=== PATIENT | female | born 1960 | race Caucasian/White ===

== ENCOUNTER 2016-07-25 12:00 | Emergency (ER) | payer MEDICARE ==
[~2016-07-25] VITALS: Ht 162.6 cm; Wt 75.0 kg
[~2016-07-25 12:00] MED LIST: BACL10TA PO; CYCL10TA9 PO; DOCU-143 PO; HYDR-3812 PO; METF500T4 PO; METH750T3 PO; OXYC-464 PO
[2016-07-25 12:14] LABS: BASOPHILS % (AUTO) 0 % (0-10); EOSINOPHILS # (AUTO) 0.1 10^3/uL (0.0-0.3); EOSINOPHILS % (AUTO) 1 % (0-10); LYMPHOCYTES # (AUTO) 4.4 X 10^3 (1.0-4.0); LYMPHOCYTES % (AUTO) 43 % (12-44); MEAN CORPUSCULAR HEMOGLOBIN 32 PG (25-34); MEAN CORPUSCULAR HGB CONC 35 G/DL (32-36); MEAN CORPUSCULAR VOLUME 91 FL (80-99); MEAN PLATELET VOLUME 10.8 FL (7.4-10.4); MONOCYTES # (AUTO) 0.5 X 10^3 (0.0-1.0); MONOCYTES % (AUTO) 5 % (0-12); NEUTROPHILS # (AUTO) 5.2 X 10^3 (1.8-7.8); NEUTROPHILS % (AUTO) 51 % (42-75); PLATELET COUNT 220 10^3/uL (130-400); RED BLOOD COUNT 4.58 10^6/uL (4.35-5.85); RED CELL DISTRIBUTION WIDTH 12.8 % (10.0-14.5); WHITE BLOOD COUNT 10.1 10^3/uL (4.3-11.0)
--- NOTE | 2016-07-25 12:20 | Diagnostic Imaging Report ---
INDICATION: Left-sided chest pain radiating down the left arm. FINDINGS: Upright portable chest shows normal heart size and vascularity. The lungs are clear. There is no effusion or pneumothorax. IMPRESSION: Normal chest. Dictated by: Dictated on workstation # [id number]
[2016-07-25] MEDS ORDERED: morphine INJ 10 MG/ML 1ML (SYR OR VIAL) IVP STA (12:24)
[2016-07-25 12:25] LABS: PROTHROMBIN TIME PATIENT 13.1 SEC (12.2-14.7)
[2016-07-25 12:37] LABS: ALANINE AMINOTRANSFERASE 32 U/L (0-55); ALBUMIN 3.7 G/DL (3.2-4.5); ANION GAP 8 MMOL/L (5-14); ASPARTATE AMINO TRANSFERASE 18 U/L (5-34); BILIRUBIN,TOTAL 0.4 MG/DL (0.1-1.0); BLOOD UREA NITROGEN 10 MG/DL (7-18); BUN/CREATININE RATIO 13; CALCIUM 9.3 MG/DL (8.5-10.1); CARBON DIOXIDE 25 MMOL/L (21-32); CHLORIDE 107 MMOL/L (98-107); CREATINE KINASE 38 U/L (29-168); GFR ESTIMATED > 60; GLUCOSE 279 MG/DL (70-105); MAGNESIUM 1.6 MG/DL (1.8-2.4); SODIUM 140 MMOL/L (135-145); TOTAL PROTEIN 6.6 G/DL (6.4-8.2)
[2016-07-25 12:45] LABS: MYOGLOBIN SERUM 23.4 NG/ML (10.0-92.0)
--- NOTE | 2016-07-25 13:08 | ED Chest Pain ---
General Chief Complaint: Chest Pain Stated Complaint: CHEST PAIN Nursing Triage Note: pt reports cp starting yesterday. pt describes cp as pressure. pt reports cp that is worse with movement/walking. pt reports increased soa with exertion. Nursing Sepsis Screen: No Definite Risk Source: patient Exam Limitations: no limitations History of Present Illness Time seen by provider: 12:40 Initial Comments Here with report of left anterior chest wall pain that she describes as a pressure or an ache and is worse with movement or deep breathing. This started yesterday and has persisted since then. She took ibuprofen last night and stated it did not help much. She does have chronic pain syndrome related to spinal cord injury but has been off her pain medicines for 3 months since moving here to [place] from [place]. Denies nausea, vomiting, weakness or breathing problems. Does admit to recent gardening. Timing/Duration: 1-2 days Severity/Quality: moderate, aching, pressure Location: central (left anterior) Radiation: no radiation ASA po [employer] SUPER[employer]OR: No NTG SL [employer] SUPERVISOR: No Associated Symptoms: No abdominal pain, back pain (chronic), No nausea/vomiting , shortness of breath, No weakness Allergies and Home Medications Allergies Coded Allergies: No Known Drug Allergies (Unverified , 11/16/15) Home Medications No Active Prescriptions or Reported Meds Review of Systems Constitutional: see HPI, No chills, No fever EENTM: No Symptoms Reported Respiratory: See HPI Cardiovascular: See HPI, Chest Pain, Denies Edema Gastrointestinal: See HPI, Denies Nausea, Denies Vomiting Genitourinary: No Symptoms Reported Skin: no symptoms reported Psychiatric/Neurological: No Symptoms Reported All Other Systems Reviewed Negative Unless Noted: Yes Past Jeqhxnf-Idxirz-Gszele Hx Patient Social History Alcohol Use: Occasionally Uses Recreational Drug Use: No Smoking Status: Current Everyday Smoker Type Used: Cigarettes Recent Foreign Travel: No Contact w/Someone Who Travel: No Recent Infectious Disease Expo: No Recent Hopitalizations: No Surgeries HX Surgeries: Yes (NECK sx, TUMOR REMOVED FROM FOREHEAD, right leg fx required 5 sx, left knee) Surgeries: Gallbladder, Orthopedic, Tubal Ligation Respiratory Hx Respiratory Disorders: Yes (allergy induced asthma) Respiratory Disorders: Asthma Cardiovascular Hx Cardiac Disorders: No Neurological Hx Neurological Disorders: Yes (spinal cord injury 2011, balance issues) Neurological Disorders: Spinal Cord Injury Reproductive System Hx Reproductive Disorders: No Genitourinary Hx Genitourinary Disorders: Yes (incont, ) Gastrointestinal Hx Gastrointestinal Disorders: No Gastrointestinal Disorders: Gall Bladder Disease Musculoskeletal Hx Musculoskeletal Disorders: Yes (left shoulder weak, spinal stenosis) Musculoskeletal Disorders: Fractures Endocrine Hx Endocrine Disorders: Yes Endocrine Disorders: Diabetes, Non-Insulin dep HEENT HX ENT Disorders: No (glasses) Cancer Hx Cancer: No Psychosocial Hx Psychiatric Problems: Yes Behavioral Health Disorders: Depression Integumentary HX Skin/Integumentary Disorder: No Blood Transfusions Hx Blood Disorders: No Reviewed Nursing Assessment Reviewed/Agree w Nursing PMH: Yes Family Medical History Significant Family History: Cancer Physical Exam Vital Signs Vital Sign - Last 12Hours 07/25/16 07/25/16 12:10 12:23 Temp 97.6 Pulse 79 Resp 18 B/P (MAP) 137/110 Pulse Ox 96 O2 Delivery Room Air Capillary Refill : Less Than 3 Seconds General Appearance: No Apparent Distress, WD/WN HEENT: PERRL/EOMI, Pharynx Normal Neck: Non Tender, Supple Respiratory: Lungs Clear, Normal Breath Sounds, Other (reproducible anterior chest wall pain.) Cardiovascular: Regular Rate, Rhythm, No Murmur Gastrointestinal: Non Tender, Soft Extremity: Non Tender, No Calf Tenderness Neurologic/Psychiatric: Alert, Oriented x3 Progress/Results/Core Measures Results/Orders Lab Results Laboratory Tests Test 07/25/16 12:03 Range/Units White Blood Count 10.1 4.3-11.0 10^3/uL Red Blood Count 4.58 4.35-5.85 10^6/uL Hemoglobin 14.5 11.5-16.0 G/DL Hematocrit 42 35-52 % Mean Corpuscular Volume 91 80-99 FL Mean Corpuscular Hemoglobin 32 25-34 PG Mean Corpuscular Hemoglobin Concent 35 32-36 G/DL Red Cell Distribution Width 12.8 10.0-14.5 % Platelet Count 220 130-400 10^3/uL Mean Platelet Volume 10.8 H 7.4-10.4 FL Neutrophils (%) (Auto) 51 42-75 % Lymphocytes (%) (Auto) 43 12-44 % Monocytes (%) (Auto) 5 0-12 % Eosinophils (%) (Auto) 1 0-10 % Basophils (%) (Auto) 0 0-10 % Neutrophils # (Auto) 5.2 1.8-7.8 X 10^3 Lymphocytes # (Auto) 4.4 H 1.0-4.0 X 10^3 Monocytes # (Auto) 0.5 0.0-1.0 X 10^3 Eosinophils # (Auto) 0.1 0.0-0.3 10^3/uL Basophils # (Auto) 0.0 0.0-0.1 10^3/uL Prothrombin Time 13.1 12.2-14.7 SEC INR Comment 1.0 0.8-1.4 Activated Partial Thromboplast Time 28 24-35 SEC D-Dimer 0.27 0.00-0.49 UG/ML Sodium Level 140 135-145 MMOL/L Potassium Level 4.0 3.6-5.0 MMOL/L Chloride Level 107 98-107 MMOL/L Carbon Dioxide Level 25 21-32 MMOL/L Anion Gap 8 5-14 MMOL/L Blood Urea Nitrogen 10 7-18 MG/DL Creatinine 0.80 0.60-1.30 MG/DL Estimat Glomerular Filtration Rate > 60 BUN/Creatinine Ratio 13 Glucose Level 279 H 70-105 MG/DL Calcium Level 9.3 8.5-10.1 MG/DL Magnesium Level 1.6 L 1.8-2.4 MG/DL Total Bilirubin 0.4 0.1-1.0 MG/DL Aspartate Amino Transf (AST/SGOT) 18 5-34 U/L Alanine Aminotransferase (ALT/SGPT) 32 0-55 U/L Alkaline Phosphatase 99 40-136 U/L Total Creatine Kinase 38 29-168 U/L Creatine Kinase MB 1.1 <6.6 NG/ML Myoglobin 23.4 10.0-92.0 NG/ML Troponin I < 0.30 <0.30 NG/ML Total Protein 6.6 6.4-8.2 G/DL Albumin 3.7 3.2-4.5 G/DL My Orders Orders - NASH EVANGELISTA MD Ketorolac Injection (Toradol Injection) (07/25/16 13:13) Orphenadrine Injection (Norflex Injectio (07/25/16 13:13) Orphenadrine Injection (Norflex Injectio (07/25/16 13:45) Medications Given in ED Current Medications Medications Dose Ordered Sig/Jose Route Start Time Stop Time Status Last Admin Dose Admin Ondansetron HCl 4 mg ONCE ONCE IVP 07/25/16 13:15 07/25/16 13:16 DC 07/25/16 13:30 4 MG Orphenadrine Citrate 60 mg ONCE ONCE IV 07/25/16 13:45 07/25/16 13:46 DC 07/25/16 13:39 60 MG Vital Signs/I&O Vital Sign - Last 12Hours 07/25/16 07/25/16 12:10 12:23 Temp 97.6 Pulse 79 Resp 18 B/P (MAP) 137/110 Pulse Ox 96 O2 Delivery Room Air Blood Pressure Mean: 119 Progress Note : Progress Note Seen and evaluated. IV, labs, EKG and chest x-ray. ASA 324 mg by mouth. Monitor patient. Morphine 6 mg IV. Toradol 30 mg IV and Norflex 60 mg IV ordered. Monitor patient. 1410: Patient is improved. We did discuss the need for follow-up with cardiology and she will do that. She is out of her normal pain medicine and has been for several months. I will write a small prescription for Flexeril and for tramadol. She will find a local doctor as well as with the cardiology appointment. Discharged home with return precautions. Patient verbalize understanding instructions and agreement with plan. ECG Initial ECG Impression Date: Jul 25, 2016 Initial ECG Impression Time: 11:56 Initial ECG Rate: 73 Initial ECG Rhythm: Normal Sinus Comment Sinus rhythm with left atrial abnormality. Left axis deviation. No evidence of ST elevation AL. No previous available for comparison. Interpreted by me. Diagnostic Imaging Diagonstic Imaging: Xray Plain Films/CT/US/NM/MRI: chest Comments NAME: ALISHA FINLEY [facility] REC#: [id number] PT STATUS: REG ER : 1960 PHYSICIAN: RAFA BLACKMON ADMIT DATE: 07/25/16/ER Signed Date of Exam: 07/25/16 CHEST 1 VIEW, AP/PA ONLY INDICATION: Left-sided chest pain radiating down the left arm. FINDINGS: Upright portable chest shows normal heart size and vascularity. The lungs are clear. There is no effusion or pneumothorax. IMPRESSION: Normal chest. Dictated by: Dictated on workstation # [id number] Dict: 07/25/16 1216 Trans: 07/25/16 1223 [id number] Interpreted by: ANTIONE JACKSON MD Electronically signed by:ANTIONE JACKSON MD 07/25/16 1223 Departure Impression Impression: Primary Impression: Chest pain Qualified Codes: R07.9 - Chest pain, unspecified Disposition: 01 HOME, SELF-CARE Condition: Improved Departure-Patient Inst. Decision time for Depature: 14:08 Referrals: MALACHI ROMERO MD [facility] Geni ESTRADA MD, BASHAR J MD NO,LOCAL PHYSICIAN (PCP) Primary Care Physician Patient Instructions: Chest Pain (DC) Add. Discharge Instructions: All discharge instructions reviewed with patient and/or family. Voiced understanding. You may take ibuprofen 600 mg every 8 hours as needed for pain. You may take Tylenol 1000 mg every 8 hours as needed for pain. Take other medications as prescribed. Follow-up with your Dr. in a few days for recheck. Call and make appointment with cardiology within one week. Return for worse pain, fever, vomiting, weakness, breathing problems or other concerns as needed. Scripts Tramadol HCl (Tramadol HCl) 50 Mg Tablet 50 MG PO Q6H Y for PAIN, #20 TAB 0 Refills Prov: NASH EAVNGELISTA MD 07/25/16 Cyclobenzaprine HCl (Cyclobenzaprine HCl) 10 Mg Tablet 10 MG PO Q8H Y for SPASMS, #20 TAB 0 Refills Prov: NASH EVANGELISTA MD 07/25/16 Work/School Note: Local Medical Staff Listing NSAH EVANGELISTA MD Jul 25, 2016 13:08
[2016-07-25] MEDS ORDERED: KETOROLAC 30 MG/ML VIAL ONE (13:12)
[2016-07-25] MEDS ORDERED: ORPHENADRINE 60 MG/2 ML (NORFLEX) AMP IM STA (13:13)
[2016-07-25] MEDS ORDERED: KETOROLAC 30 MG/ML VIAL IVP STA (13:13)
[2016-07-25] MEDS ORDERED: ORPHENADRINE 60 MG/2 ML (NORFLEX) AMP ONE (13:13)
[2016-07-25] MEDS ORDERED: ONDANSETRON 4 MG/2 ML (SDV) Z0FRAN IVP ONE (13:15)
[2016-07-25] MEDS ORDERED: ORPHENADRINE 60 MG/2 ML (NORFLEX) AMP IV ONE (13:45)
[2016-07-25] MEDS ORDERED: TRAM50TA2 PO (14:13)
[2016-07-25] MEDS ORDERED: CYCL10TA9 PO (14:13)
[2016-07-25 14:25] VITALS: BP 152/88
== END 2016-07-25 14:25 | disposition home or self-care (01) ==
LOC: EDUNIT# 12:00 → ER 12:01
DX: R07.89 Other chest pain (principal); E11.9 Type 2 diabetes mellitus without complications; F17.210 Nicotine dependence, cigarettes, uncomplicated; Z86.69 Personal history of other diseases of the nervous system and sense organs
CPT/HCPCS: 36415; 71010; 80053; 82550; 82553; 83735; 83874; 84484; 85025; 85379; 85610; 85730; 93005; 93041; 96374; 96375

== ENCOUNTER 2016-08-19 18:17 | Emergency (ER) | payer MEDICARE ==
[~2016-08-19] VITALS: Ht 162.6 cm; Wt 75.0 kg
[~2016-08-19 18:17] MED LIST changes: +TRAM50TA2 PO
--- NOTE | 2016-08-19 18:41 | ED Abdominal Pain ---
General Stated Complaint: ABD PAIN Source of Information: Patient, RN Notes Reviewed Exam Limitations: No Limitations History of Present Illness Time Seen By Provider: 18:41 Initial Comments Patient presents c/ c/o RLQ abdominal pain x 3 days. Timing/Duration: 2-3 Days Severity/Quality: Severe (9/10), Sharp, Stabbing Location: RLQ, Suprapubic Radiation: Back (right flank) Activities at Onset: None Modifying Factors: Improves With Other (none known) Associated Symptoms: Back Pain, Fever/Chills, Other (nausea) Allergies and Home Medications Allergies Coded Allergies: No Known Drug Allergies (Unverified , 11/16/15) Home Medications Cefdinir 300 Mg Capsule, 300 MG PO BID, #20 Ref 0 Prescribed by: SALVADOR HUNTLEY on 08/19/162115 Cyclobenzaprine HCl 10 Mg Tablet, 10 MG PO Q8H PRN for SPASMS, #20 Ref 0 Prescribed by: NASH EVANGELISTA on 07/25/16 141 Hydrocodone/Acetaminophen 1 Each Tablet, 1 EACH PO Q6H PRN for PAIN, #20 Ref 0 Prescribed by: SALVADOR HUNTLEY on 08/19/162116 Tramadol HCl 50 Mg Tablet, 50 MG PO Q6H PRN for PAIN, #20 Ref 0 Prescribed by: NASH EVANGELISTA on 07/25/16 1413 Review of Systems Constitutional: see HPI, chills Gastrointestinal: See HPI, Abdominal Pain (RLQ/suprapubic), Nausea Genitourinary: See HPI, Burning, Flank Pain (right) Musculoskeletal: see HPI, back pain (right flank) All Other Systems Reviewed Negative Unless Noted: Yes (Negative excepted noted.) Past Bgqorvn-Nrlmqv-Ilpdqe Hx Patient Social History Type Used: Cigarettes Recent Foreign Travel: No Contact w/Someone Who Travel: No Recent Hopitalizations: No Surgeries HX Surgeries: Yes (NECK sx, TUMOR REMOVED FROM FOREHEAD, right leg fx required 5 sx, left knee) Surgeries: Gallbladder, Orthopedic, Tubal Ligation Respiratory Hx Respiratory Disorders: Yes (allergy induced asthma) Respiratory Disorders: Asthma Cardiovascular Hx Cardiac Disorders: No Neurological Hx Neurological Disorders: Yes (spinal cord injury 2011, balance issues) Neurological Disorders: Spinal Cord Injury Reproductive System Hx Reproductive Disorders: No Genitourinary Hx Genitourinary Disorders: Yes (incont, ) Gastrointestinal Hx Gastrointestinal Disorders: No Gastrointestinal Disorders: Gall Bladder Disease Musculoskeletal Hx Musculoskeletal Disorders: Yes (left shoulder weak, spinal stenosis) Musculoskeletal Disorders: Fractures Endocrine Hx Endocrine Disorders: Yes Endocrine Disorders: Diabetes, Non-Insulin dep HEENT HX ENT Disorders: No (glasses) Cancer Hx Cancer: No Psychosocial Hx Psychiatric Problems: Yes Behavioral Health Disorders: Depression Integumentary HX Skin/Integumentary Disorder: No Blood Transfusions Hx Blood Disorders: No Family Medical History Significant Family History: Cancer Physical Exam Vital Signs VS - Last 72 Hours, by Label 08/19/16 18:30 Temp 98.4 Pulse 120 Resp 25 B/P (MAP) 169/140 Pulse Ox 97 O2 Delivery Room Air Capillary Refill : General Appearance: WD/WN, moderate distress HEENT: normal ENT inspection Neck: normal inspection Respiratory: lungs clear Cardiovascular: regular rate, rhythm, tachycardia Gastrointestinal: soft, guarding (RLQ/suprapubic), No rebound, tenderness (RLQ/ suprapubic) Rectal: deferred Back: CVA tenderness (R) Neurologic/Psychiatric: no motor/sensory deficits, alert, oriented x 3, depressed affect Skin: warm/dry Focused Exam Lactic Acid Level Laboratory Tests Test 08/19/16 19:33 Lactic Acid Level 0.90 MMOL/L (0.50-2.00) Progress/Results/Core Measures Results/Orders Lab Results Laboratory Tests Test 08/19/16 18:40 08/19/16 19:33 08/19/16 20:25 Range/Units White Blood Count 20.2 H 4.3-11.0 10^3/uL Red Blood Count 5.13 4.35-5.85 10^6/uL Hemoglobin 16.2 H 11.5-16.0 G/DL Hematocrit 46 35-52 % Mean Corpuscular Volume 89 80-99 FL Mean Corpuscular Hemoglobin 32 25-34 PG Mean Corpuscular Hemoglobin Concent 35 32-36 G/DL Red Cell Distribution Width 12.7 10.0-14.5 % Platelet Count 316 130-400 10^3/uL Mean Platelet Volume 10.8 H 7.4-10.4 FL Neutrophils (%) (Auto) 66 42-75 % Lymphocytes (%) (Auto) 26 12-44 % Monocytes (%) (Auto) 7 0-12 % Eosinophils (%) (Auto) 0 0-10 % Basophils (%) (Auto) 0 0-10 % Neutrophils # (Auto) 13.4 H 1.8-7.8 X 10^3 Lymphocytes # (Auto) 5.3 H 1.0-4.0 X 10^3 Monocytes # (Auto) 1.4 H 0.0-1.0 X 10^3 Eosinophils # (Auto) 0.1 0.0-0.3 10^3/uL Basophils # (Auto) 0.0 0.0-0.1 10^3/uL Neutrophils % (Manual) 66 % Lymphocytes % (Manual) 32 % Monocytes % (Manual) 1 % Eosinophils % (Manual) 1 % Basophils % (Manual) 0 % Band Neutrophils 0 % Blood Morphology Comment NORMAL Sodium Level 134 L 135-145 MMOL/L Potassium Level 3.8 3.6-5.0 MMOL/L Chloride Level 100 98-107 MMOL/L Carbon Dioxide Level 21 21-32 MMOL/L Anion Gap 13 5-14 MMOL/L Blood Urea Nitrogen 8 7-18 MG/DL Creatinine 0.93 0.60-1.30 MG/DL Estimat Glomerular Filtration Rate > 60 BUN/Creatinine Ratio 9 Glucose Level 361 H 70-105 MG/DL Calcium Level 10.2 H 8.5-10.1 MG/DL Total Bilirubin 0.8 0.1-1.0 MG/DL Aspartate Amino Transf (AST/SGOT) 10 5-34 U/L Alanine Aminotransferase (ALT/SGPT) 23 0-55 U/L Alkaline Phosphatase 123 40-136 U/L Total Protein 7.9 6.4-8.2 G/DL Albumin 4.2 3.2-4.5 G/DL Lipase 21 8-78 U/L Lactic Acid Level 0.90 0.50-2.00 MMOL/L Urine Color SHAYY H Urine Clarity SLIGHTLY CLOUDY Urine pH 6 5-9 Urine Specific [place] 1.015 L 1.016-1.022 Urine Protein 4+ NEGATIVE Urine Glucose (UA) 3+ H NEGATIVE Urine Ketones 1+ H NEGATIVE Urine Nitrite POSITIVE H NEGATIVE Urine Bilirubin 3+ H NEGATIVE Urine Urobilinogen 8 H NORMAL MG/DL Urine Leukocyte Esterase 3+ H NEGATIVE Urine RBC (Auto) 5+ H NEGATIVE Urine RBC 5-10 H /HPF Urine WBC TNTC H /HPF Urine Crystals NONE /LPF Urine Bacteria LARGE H /HPF Urine Casts NONE /LPF Urine Mucus NEGATIVE /LPF Urine Culture Indicated YES Micro Results Microbiology 08/19/16 Blood Culture - Preliminary, Resulted No growth 08/19/16 Urine Culture - Preliminary, Resulted Escherichia Coli My Orders Orders - SALVADOR HUNTLEY DO Saline Lock/Iv-Start (08/19/16 18:44) Cbc With Automated Diff (08/19/16 18:44) Comprehensive Metabolic Panel (08/19/16 18:44) Lipase (08/19/16 18:44) Ua Culture If Indicated (08/19/16 18:44) Ketorolac Injection (Toradol Injection) (08/19/16 19:00) Ondansetron Injection (Zofran Injectio (08/19/16 19:00) Saline Lock/Iv-Start (08/19/16 18:46) Ns Iv 1000 Ml (Sodium Chloride 0.9%) (08/19/16 18:46) Manual Differential (08/19/16 18:40) Blood Culture (08/19/16 19:07) Lactic Acid Analyzer (08/19/16 19:07) Iohexol Injection (Omnipaque 350 Mg/Ml 1 (08/19/16 19:45) Ns (Ivpb) (Sodium Chloride 0.9% Ivpb Bag (08/19/16 19:45) Ct Abdomen/Pelvis Wo (08/19/16 20:25) Urine Culture (08/19/16 20:25) Ceftriaxone Injection (Rocephin Injectio (08/19/16 21:00) Butorphanol Injection (Stadol Injection) (08/19/16 21:15) Rx-Hydrocodone/Apap 5-325 Mg (Rx-Vicodin (08/19/16 21:30) Butorphanol Injection (Stadol Injection) (08/19/16 21:03) Medications Given in ED Vital Signs/I&O Vital Sign - Last 12Hours 08/19/16 18:30 Temp 98.4 Pulse 120 Resp 25 B/P (MAP) 169/140 Pulse Ox 97 O2 Delivery Room Air Intake and Output 08/20/16 00:00 Intake Total 1050 ml Balance 1050 ml Diagnostic Imaging Diagonstic Imaging: CT Plain Films/CT/US/NM/MRI: abdomen, pelvis Reviewed: Reviewed/Discussed Departure Impression Impression: Primary Impression: Abdominal pain Additional Impression: Pyelonephritis Disposition: HOME, SELF-CARE Condition: Stable Departure-Patient Inst. Decision time for Depature: 21:12 Referrals: ELAN KAY MD Patient Instructions: Urinary Tract Infection, Adult (DC) Add. Discharge Instructions: RECOMMEND FOLLOW UP WITH DR. KAY AFTER COMPLETING THE ANTIBIOTICS TO HAVE YOUR RIGHT KIDNEY RECHECKED AND MAKE SURE ANY REMAINING BLOCKAGE DOESN'T REMAIN. Scripts Hydrocodone/Acetaminophen (Lortab 7.5-325 mg Tablet) 1 Each Tablet 1 EACH PO Q6H Y for PAIN, #20 TAB 0 Refills Prov: SALVADOR HUNTLEY DO 08/19/16 Cefdinir (Cefdinir) 300 Mg Capsule 300 MG PO BID for UTI, #20 CAP 0 Refills Prov: SALVADOR HUNTLEY DO 08/19/16 SALVADOR HUNTLEY DO August 19, 2016 18:41
[2016-08-19] MEDS ORDERED: NS IV 1000 ML 1,000 ML IV ONE (18:46)
[2016-08-19 18:52] LABS: BASOPHILS % (AUTO) 0 % (0-10); EOSINOPHILS # (AUTO) 0.1 10^3/uL (0.0-0.3); EOSINOPHILS % (AUTO) 0 % (0-10); LYMPHOCYTES # (AUTO) 5.3 X 10^3 (1.0-4.0); LYMPHOCYTES % (AUTO) 26 % (12-44); MEAN CORPUSCULAR HEMOGLOBIN 32 PG (25-34); MEAN CORPUSCULAR HGB CONC 35 G/DL (32-36); MEAN CORPUSCULAR VOLUME 89 FL (80-99); MEAN PLATELET VOLUME 10.8 FL (7.4-10.4); MONOCYTES # (AUTO) 1.4 X 10^3 (0.0-1.0); MONOCYTES % (AUTO) 7 % (0-12); NEUTROPHILS # (AUTO) 13.4 X 10^3 (1.8-7.8); NEUTROPHILS % (AUTO) 66 % (42-75); PLATELET COUNT 316 10^3/uL (130-400); RED BLOOD COUNT 5.13 10^6/uL (4.35-5.85); RED CELL DISTRIBUTION WIDTH 12.7 % (10.0-14.5); WHITE BLOOD COUNT 20.2 10^3/uL (4.3-11.0)
[2016-08-19] MEDS ORDERED: ONDANSETRON 4 MG/2 ML (SDV) Z0FRAN IVP ONE (19:00)
[2016-08-19] MEDS ORDERED: KETOROLAC 30 MG/ML VIAL IVP ONE (19:00)
[2016-08-19 19:10] LABS: BAND NEUTROPHILS 0 %; BASOPHILS % (MANUAL) 0 %; EOSINOPHILS % (MANUAL) 1 %; LYMPHOCYTES % (MANUAL) 32 %; NEUTROPHILS % (MANUAL) 66 %
[2016-08-19 19:16] LABS: ALANINE AMINOTRANSFERASE 23 U/L (0-55); ALBUMIN 4.2 G/DL (3.2-4.5); ANION GAP 13 MMOL/L (5-14); ASPARTATE AMINO TRANSFERASE 10 U/L (5-34); BILIRUBIN,TOTAL 0.8 MG/DL (0.1-1.0); BLOOD UREA NITROGEN 8 MG/DL (7-18); BUN/CREATININE RATIO 9; CALCIUM 10.2 MG/DL (8.5-10.1); CARBON DIOXIDE 21 MMOL/L (21-32); CHLORIDE 100 MMOL/L (98-107); CREATININE SERUM 0.93 MG/DL (0.60-1.30); GFR ESTIMATED > 60; GLUCOSE 361 MG/DL (70-105); LIPASE 21 U/L (8-78); POTASSIUM 3.8 MMOL/L (3.6-5.0); SODIUM 134 MMOL/L (135-145); TOTAL PROTEIN 7.9 G/DL (6.4-8.2)
[2016-08-19] MEDS ORDERED: IOHEXOL 350 MG/ML 100 ML (OMNIPAQUE 350) VIAL IV ONE (19:45)
[2016-08-19] MEDS ORDERED: NS 100 ML (IVPB) BAG IV ONE (19:45)
[2016-08-19 20:31] LABS: KETONES,URINE 1+ (NEGATIVE); LEUKOCYTE ESTERASE ,URINE 3+ (NEGATIVE); NITRITE,URINE POSITIVE (NEGATIVE); PH,URINE 6 (5-9); PROTEIN,URINE 4+ (NEGATIVE); UROBILINOGEN,URINE 8 MG/DL (NORMAL)
[2016-08-19 20:39] LABS: BILIRUBIN,URINE 3+ (NEGATIVE)
[2016-08-19 20:41] LABS: WBC,URINE TNTC /HPF
--- NOTE | 2016-08-19 20:51 | Diagnostic Imaging Report ---
PROCEDURE: CT abdomen and pelvis without contrast. TECHNIQUE: Multiple contiguous axial images were obtained through the abdomen and pelvis without the use of intravenous contrast. INDICATION: Right posterior back pain radiating to the front. Hurts to urinate. CORRELATION STUDY: 11/16/2015. FINDINGS: There has been development of a right-sided hydroureteronephrosis. There is abnormal thickening and inflammatory changes about the right ureter, most pronounced at its proximal aspect. Slight engorgement of the right kidney is also present. The ureter becomes somewhat indistinct more inferiorly and cannot be completely traced. Definitive calcification along the expected course does not appear to be present. The left kidney and collecting system are unremarkable. The uterus is noted be enlarged and lobulated, likely with fibroids. Perhaps this is the etiology for obstruction of the distal right ureter. There is a tiny nodule about the right lung base. No basilar infiltrate. Heart size normal. EG junction unremarkable. There is a very heterogeneous appearance about the liver, likely owing to hepatic steatosis. Slight asymmetric area of increased density in the posterior lateral right lobe is present appearing relatively stable from prior study at approximately 18 mm. The gallbladder is absent. The spleen, pancreas and adrenal glands are unremarkable. The abdominal aorta with minimal wall calcification, nonaneurysmal. Gastrointestinal tract without obstruction or inflammation. Normal appendix. Fat-containing retro-umbilical hernia. Small bowel does approach this defect. The urinary bladder is decompressed. IMPRESSION: Development of a right-sided mild obstructive uropathy. There is inflammatory changes about the ureter and kidney and an underlying superimposed infectious etiology is not excluded. Etiology for the obstruction is somewhat indeterminate. This could be perhaps from a probable enlarged fibroid uterus. The possibility of other obstructing masses including potential ureteral neoplasm however should be excluded given no other identifiable abnormality. Rather pronounced hepatic steatosis. Area of asymmetric density about the right lobe overall appears to be relatively stable. Interval cholecystectomy changes. Dictated by: Dictated on workstation # [id number]
[2016-08-19] MEDS ORDERED: cefTRIAXone INJECTION 1,000 MG in NS (IVPB) 50 ML IV ONE (21:00)
[2016-08-19] MEDS ORDERED: BUTORPHANOL INJ 2 MG/ML (STADOL) VIAL ONE (21:03)
[2016-08-19] MEDS ORDERED: BUTORPHANOL INJ 2 MG/ML (STADOL) VIAL IV ONE (21:15)
[2016-08-19] MEDS ORDERED: CEFD300C3 PO (21:16)
[2016-08-19] MEDS ORDERED: HYDR-3730 PO (21:17)
[2016-08-19] MEDS ORDERED: RX-HYDROCODONE/APAP 5/325 MG #4 TAB PK PO PRN (21:30)
[2016-08-19 21:50] VITALS: BP 145/79
== END 2016-08-19 21:50 | disposition home or self-care (01) ==
LOC: EDUNIT# 18:17 → ER 18:19
DX: N39.0 Urinary tract infection, site not specified (principal); E11.9 Type 2 diabetes mellitus without complications
CPT/HCPCS: 36415; 74176; 80053; 81000; 83605; 83690; 85007; 85027; 87040; 87088; 87186; 96361; 96365; 96375

== ENCOUNTER 2017-11-24 19:49 | Emergency (ER) | payer MEDICARE ==
[~2017-11-24] VITALS: Ht 162.6 cm; Wt 72.6 kg
[~2017-11-24 19:49] MED LIST changes: +ACHD5005 PO; +CEFD300C3 PO; +HYDR-3730 PO; -HYDR-3812 PO; -METF500T4 PO; +METF500T5 PO
[2017-11-24] MEDS ORDERED: NS IV 1000 ML 1,000 ML IV ONE (20:49)
[2017-11-24 21:17] LABS: BASOPHILS % (AUTO) 0 % (0-10); EOSINOPHILS # (AUTO) 0.1 10^3/uL (0.0-0.3); EOSINOPHILS % (AUTO) 1 % (0-10); HEMATOCRIT 46 % (35-52); HEMOGLOBIN 16.5 G/DL (11.5-16.0); LYMPHOCYTES # (AUTO) 5.2 X 10^3 (1.0-4.0); LYMPHOCYTES % (AUTO) 41 % (12-44); MEAN CORPUSCULAR HEMOGLOBIN 31 PG (25-34); MEAN CORPUSCULAR HGB CONC 36 G/DL (32-36); MEAN CORPUSCULAR VOLUME 88 FL (80-99); MEAN PLATELET VOLUME 10.5 FL (7.4-10.4); MONOCYTES # (AUTO) 0.7 X 10^3 (0.0-1.0); MONOCYTES % (AUTO) 6 % (0-12); NEUTROPHILS # (AUTO) 6.5 X 10^3 (1.8-7.8); NEUTROPHILS % (AUTO) 52 % (42-75); PLATELET COUNT 286 10^3/uL (130-400); RED BLOOD COUNT 5.25 10^6/uL (4.35-5.85); RED CELL DISTRIBUTION WIDTH 12.8 % (10.0-14.5); WHITE BLOOD COUNT 12.5 10^3/uL (4.3-11.0)
[2017-11-24 21:17] LABS: BILIRUBIN,URINE NEGATIVE (NEGATIVE); CLARITY,URINE CLEAR; COLOR,URINE YELLOW; GLUCOSE, URINE (UA) 4+ (NEGATIVE); KETONES,URINE NEGATIVE (NEGATIVE); LEUKOCYTE ESTERASE ,URINE 1+ (NEGATIVE); NITRITE,URINE NEGATIVE (NEGATIVE); PH,URINE 6 (5-9); PROTEIN,URINE NEGATIVE (NEGATIVE); UROBILINOGEN,URINE NORMAL (NORMAL)
[2017-11-24 21:30] LABS: RBC,URINE 0-2 /HPF; WBC,URINE 0-2 /HPF
[2017-11-24] MEDS ORDERED: inSUlin (REGULAR) HUMAN 1 UNIT/0.01 ML (CHARGE PER UNIT) IV ONE (21:30)
[2017-11-24] MEDS ORDERED: ONDANSETRON 4 MG/2 ML (SDV) Z0FRAN IVP ONE (21:30)
[2017-11-24 21:35] LABS: ALANINE AMINOTRANSFERASE 37 U/L (0-55); ALBUMIN 4.3 GM/DL (3.2-4.5); ALKALINE PHOSPHATASE 113 U/L (40-136); AMYLASE 61 U/L (25-125); BILIRUBIN,TOTAL 0.4 MG/DL (0.1-1.0); BUN/CREATININE RATIO 13; CALCIUM 10.3 MG/DL (8.5-10.1); CARBON DIOXIDE 23 MMOL/L (21-32); CHLORIDE 102 MMOL/L (98-107); GFR ESTIMATED > 60; LIPASE 65 U/L (8-78); MAGNESIUM 1.8 MG/DL (1.8-2.4); POTASSIUM 4.1 MMOL/L (3.6-5.0); SODIUM 135 MMOL/L (135-145); TOTAL PROTEIN 7.8 GM/DL (6.4-8.2)
[2017-11-24 21:46] LABS: GLUCOSE 432 MG/DL (70-105)
[2017-11-24 21:54] LABS: TSH (THYROID ANALYZER) 2.79 UIU/ML (0.35-4.94)
[2017-11-24] MEDS ORDERED: hydrALAZINE (APESOLINE) 20 MG/ML VIAL IV ONE (22:15)
[2017-11-24] MEDS ORDERED: LISI-556 PO (22:16)
[2017-11-24] MEDS ORDERED: METF500T5 PO (22:16)
--- NOTE | 2017-11-24 22:16 | ED General ---
General Chief Complaint: Glucose Problems Stated Complaint: NAUSEA/DIARRHEA/ELEV BLOOD SUGAR AT 415 Nursing Triage Note: pt verbalized last three years has been treating diabetes with diet. states last 2 months not been feeling well. states diarrhea/sweats/not sleeping well. Nursing Sepsis Screen: No Definite Risk Allergies and Home Medications Allergies Coded Allergies: No Known Drug Allergies (Unverified , 11/16/15) Home Medications Cefdinir 300 Mg Capsule, 300 MG PO BID Prescribed by: SALVADOR HUNTLEY on 08/19/162115 Cyclobenzaprine HCl 10 Mg Tablet, 10 MG PO Q8H PRN for SPASMS Prescribed by: NASH EVANGELISTA on 07/25/16 141 Hydrocodone/Acetaminophen 1 Each Tablet, 1 EACH PO Q6H PRN for PAIN Prescribed by: SALVADOR HUNTLEY on 08/19/162116 Tramadol HCl 50 Mg Tablet, 50 MG PO Q6H PRN for PAIN Prescribed by: NASH EVANGELISTA on 07/25/16 141 Past Vxdchme-Iyvtcs-Wgadtj Hx Patient Social History Alcohol Beverage of Choice: Beer, Whiskey Type Used: Cigarettes 2nd Hand Smoke Exposure: Yes Recent Foreign Travel: No Contact w/Someone Who Travel: No Recent Infectious Disease Expo: No Recent Hopitalizations: No Seasonal Allergies Seasonal Allergies: No Past Medical History Surgeries: Yes Gallbladder, Orthopedic, Tubal Ligation Respiratory: Yes (allergy induced asthma) Asthma Cardiac: No Neurological: Yes (spinal cord injury 2011, balance issues) Spinal Cord Injury : No Reproductive Disorders: No Gastrointestinal: No Gall Bladder Disease Musculoskeletal: Yes (left shoulder weak, spinal stenosis) Fractures Endocrine: Yes Diabetes, Non-Insulin dep Cancer: No Psychosocial: Yes Depression Integumentary: No Blood Disorders: No Family Medical History Cancer Physical Exam Vital Signs Vital Signs - First Documented 11/24/17 20:50 Temp 97.4 Pulse 104 Resp 20 B/P (MAP) 165/114 (131) Pulse Ox 96 O2 Delivery Room Air Capillary Refill : Less Than 3 Seconds Height, Weight, BMI Height: 5'4.00" Weight: 160lbs. 4.0oz. [id number]; 32.0 BMI Method:Actual Progress/Results/Core Measures Suspected Sepsis Recent Fever Within 48 Hours: No Infection Criteria Present: None New/Unexplained Altered Menta: No Sepsis Screen: No Definite Risk SIRS Temperature:97.4 Pulse: 104 Respiratory Rate: 20 Laboratory Tests 11/24/17 21:05: White Blood Count 12.5H Blood Pressure 165 /114 Mean: 131 Laboratory Tests 11/24/17 21:05: Creatinine 0.90, Platelet Count 286, Total Bilirubin 0.4 Results/Orders Lab Results Laboratory Tests Test 11/24/17 21:00 11/24/17 21:03 11/24/17 21:05 Range/Units Urine Color YELLOW Urine Clarity CLEAR Urine pH 6 5-9 Urine Specific [place] 1.015 L 1.016-1.022 Urine Protein NEGATIVE NEGATIVE Urine Glucose (UA) 4+ H NEGATIVE Urine Ketones NEGATIVE NEGATIVE Urine Nitrite NEGATIVE NEGATIVE Urine Bilirubin NEGATIVE NEGATIVE Urine Urobilinogen NORMAL NORMAL MG/DL Urine Leukocyte Esterase 1+ H NEGATIVE Urine RBC (Auto) NEGATIVE NEGATIVE Urine RBC 0-2 /HPF Urine WBC 0-2 /HPF Urine Squamous Epithelial Cells 2-5 /HPF Urine Crystals NONE /LPF Urine Bacteria NONE /HPF Urine Casts NONE /LPF Urine Mucus NEGATIVE /LPF Urine Culture Indicated NO Glucometer 390 H 70-110 MG/DL White Blood Count 12.5 H 4.3-11.0 10^3/uL Red Blood Count 5.25 4.35-5.85 10^6/uL Hemoglobin 16.5 H 11.5-16.0 G/DL Hematocrit 46 35-52 % Mean Corpuscular Volume 88 80-99 FL Mean Corpuscular Hemoglobin 31 25-34 PG Mean Corpuscular Hemoglobin Concent 36 32-36 G/DL Red Cell Distribution Width 12.8 10.0-14.5 % Platelet Count 286 130-400 10^3/uL Mean Platelet Volume 10.5 H 7.4-10.4 FL Neutrophils (%) (Auto) 52 42-75 % Lymphocytes (%) (Auto) 41 12-44 % Monocytes (%) (Auto) 6 0-12 % Eosinophils (%) (Auto) 1 0-10 % Basophils (%) (Auto) 0 0-10 % Neutrophils # (Auto) 6.5 1.8-7.8 X 10^3 Lymphocytes # (Auto) 5.2 H 1.0-4.0 X 10^3 Monocytes # (Auto) 0.7 0.0-1.0 X 10^3 Eosinophils # (Auto) 0.1 0.0-0.3 10^3/uL Basophils # (Auto) 0.0 0.0-0.1 10^3/uL Sodium Level 135 135-145 MMOL/L Potassium Level 4.1 3.6-5.0 MMOL/L Chloride Level 102 98-107 MMOL/L Carbon Dioxide Level 23 21-32 MMOL/L Anion Gap 10 5-14 MMOL/L Blood Urea Nitrogen 12 7-18 MG/DL Creatinine 0.90 0.60-1.30 MG/DL Estimat Glomerular Filtration Rate > 60 BUN/Creatinine Ratio 13 Glucose Level 432 *H 70-105 MG/DL Calcium Level 10.3 H 8.5-10.1 MG/DL Magnesium Level 1.8 1.8-2.4 MG/DL Total Bilirubin 0.4 0.1-1.0 MG/DL Aspartate Amino Transf (AST/SGOT) 15 5-34 U/L Alanine Aminotransferase (ALT/SGPT) 37 0-55 U/L Alkaline Phosphatase 113 40-136 U/L Total Protein 7.8 6.4-8.2 GM/DL Albumin 4.3 3.2-4.5 GM/DL Amylase Level 61 25-125 U/L Lipase 65 8-78 U/L TSH [place] Testing 2.79 0.35-4.94 UIU/ML My Orders Orders - ANA WOODS DO Amylase (11/24/17 20:49) Cbc With Automated Diff (11/24/17 20:49) Comprehensive Metabolic Panel (11/24/17 20:49) Lipase (11/24/17 20:49) Magnesium (11/24/17 20:49) Thyroid Analyzer (11/24/17 20:49) Ua Culture If Indicated (11/24/17 20:49) Accucheck Stat ONCE (11/24/17 20:49) Monitor-Rhythm Ecg Trace Only (11/24/17 20:49) Saline Lock/Iv-Start (11/24/17 20:49) Ns Iv 1000 Ml (Sodium Chloride 0.9%) (11/24/17 20:49) Insulin (Regular) Human (Humulin R (Per (11/24/17 21:30) Ondansetron Injection (Zofran Injectio (11/24/17 21:30) Accucheck Stat ONCE (11/24/17 22:04) Medications Given in ED Current Medications Medications Dose Ordered Sig/Jose Route Start Time Stop Time Status Last Admin Dose Admin Insulin Human Regular 15 unit ONCE ONCE IV 11/24/17 21:30 11/24/17 21:31 DC 11/24/17 21:39 15 UNIT Ondansetron HCl 4 mg ONCE ONCE IVP 11/24/17 21:30 11/24/17 21:31 DC 11/24/17 21:39 4 MG Sodium Chloride 1,000 ml @ 0 mls/hr Q0M ONCE IV 11/24/17 20:49 11/24/17 20:51 DC 11/24/17 21:39 0 MLS/HR Vital Signs/I&O 11/24/17 20:50 Temp 97.4 Pulse 104 Resp 20 B/P (MAP) 165/114 (131) Pulse Ox 96 O2 Delivery Room Air Capillary Refill : Less Than 3 Seconds Blood Pressure Mean: 131 Point of Care Testing Finger Stick Blood Glucose: 390 Blood Glucose Action Taken: notified Departure Impression Primary Impression: Uncontrolled diabetes mellitus Additional Impressions: Uncontrolled hypertension Non-compliance Disposition: HOME, SELF-CARE Condition: Improved Departure-Patient Inst. Referrals: NO,LOCAL PHYSICIAN (PCP) Primary Care Physician [facility] Patient Instructions: Controlling Your Blood Pressure Through Lifestyle, Diabetes Diet , Diabetes Exchange Diet, Diabetes Type 2 (DC), High Blood Pressure (DC), High Blood Pressure in Adults, Medicines for High Blood Pressure Add. Discharge Instructions: CHECK YOUR BLOOD SUGAR AT LEAST 3 TIMES A DAY AND KEEP DIARY, AND BRING READINGS WITH YOU TO APPOINTMENT FOLLOW UP WITH [facility] THIS WEEK--CALL IN AM FOR APPOINTMENT All discharge instructions reviewed with patient and/or family. Voiced understanding. Scripts Lisinopril (Lisinopril) 5 Mg Tablet 5 MG PO DAILY, #15 TAB Prov: CHUCKANA K DO 11/24/17 Metformin HCl (Metformin HCl) 500 Mg Tablet 500 MG PO BID, #30 TAB Prov: ANA WOODS K DO 11/24/17 ANA WOODS DO Nov 24, 2017 22:16
[2017-11-24] MEDS ORDERED: KETOROLAC 30 MG/ML VIAL IVP ONE (23:15)
--- OUTSIDE RECORDS SUMMARY | 2017-11-24 23:20 | XMS REPORT ---
Author Author HENRY QUIÑONES [facility] Address Unknown Care Team Providers Care Safety Trainer Name Role Phone HENRY QUIÑONES Unavailable PROBLEMS Unknown Problems ALLERGIES No Known Allergies SOCIAL HISTORY Never Assessed PLAN OF CARE Activity Details Follow Up prn Reason:hygiene VITAL SIGNS Blood pressure systolic 120 mmHg 2016-06-13 Blood pressure diastolic 90 mmHg 2016-06-13 MEDICATIONS Medication Instructions Dosage Frequency Start Date End Date Duration Status Methocarbamol Active Flexeril Active Hydrocodone-Acetaminophen Active RESULTS No Results PROCEDURES Procedure Date Ordered Result Body Site LTD ORAL EVALUATION - PROBLEM FOCUS Jun 13, 2016 INTRAORL-PERIAPICAL 1 FILM [id number] Jun 13, 2016 EXTRAC ERUPTED TOOTH/EXPOSED ROOT Jun 13, 2016 BITEWING - SINGLE FILM Jun 13, 2016 IMMUNIZATIONS No Known Immunizations MEDICAL (GENERAL) HISTORY Type Description Date Medical History diabetes Medical History spinal cord injury Surgical History shoulder Surgical History neck
[2017-11-24 23:35] VITALS: BP 163/83
== END 2017-11-24 23:35 | disposition home or self-care (01) ==
LOC: EDUNIT# 19:49 → ER 19:50
DX: E11.65 Type 2 diabetes mellitus with hyperglycemia (principal); J45.909 Unspecified asthma, uncomplicated; I10 Essential (primary) hypertension; F32.9 Major depressive disorder, single episode, unspecified; Z87.448 Personal history of other diseases of urinary system; Z77.22 Contact with and (suspected) exposure to environmental tobacco smoke (acute) (chronic); Z98.51 Tubal ligation status; Z91.14 Patient's other noncompliance with medication regimen
CPT/HCPCS: 36415; 80053; 81000; 82150; 82962; 83690; 83735; 84443; 85025; 93041; 96361; 96374; 96375

== ENCOUNTER 2017-11-28 16:37 | Emergency (ER) | payer MEDICARE ==
[~2017-11-28] VITALS: Ht 162.6 cm; Wt 72.7 kg
[~2017-11-28 16:37] MED LIST changes: +LISI-556 PO
[2017-11-28] MEDS ORDERED: NS IV 1000 ML 1,000 ML IV SCH (17:00)
[2017-11-28] MEDS ORDERED: fentaNYL INJECTION 100 MCG/2 ML AMP IVP ONE (17:00)
[2017-11-28] MEDS ORDERED: ONDANSETRON 4 MG/2 ML (SDV) Z0FRAN IVP ONE (17:00)
--- NOTE | 2017-11-28 17:00 | ED Abdominal Pain ---
General Chief Complaint: Abdominal/GI Problems Stated Complaint: STOMACH CRAMPS/N/V/D Source of Information: Patient Exam Limitations: No Limitations History of Present Illness Date Seen by Provider: Nov 28, 2017 Time Seen by Provider: 16:57 Initial Comments Patient is a 57-year-old female who presents to the emergency room with complaints of nausea, vomiting, diarrhea, and cramping abdominal pain for 4 months. She reports that she was seen in the emergency room 4 days ago and was told to follow up with her primary care provider which she did 2 days ago, who is Dr. Nunez. He agreed with plan of care from emergency room and did not change any of her medications and told to follow up within 1 month for a recheck. Patient continues to have nausea, vomiting, diarrhea without relief. Allergies and Home Medications Allergies Coded Allergies: No Known Drug Allergies (Unverified , 11/16/15) Home Medications Cefdinir 300 Mg Capsule, 300 MG PO BID Prescribed by: SALVADOR HUNTLEY on 08/19/162115 Cyclobenzaprine HCl 10 Mg Tablet, 10 MG PO Q8H PRN for SPASMS Prescribed by: NASH EVANGELISTA on 07/25/161412 Hydrocodone Bit/Acetaminophen 1 Tab Tab, 1 EACH PO Q6H PRN for PAIN Prescribed by: EDWARD NELSON on 11/28/171902 Hydrocodone/Acetaminophen 1 Each Tablet, 1 EACH PO Q6H PRN for PAIN Prescribed by: SALVADOR HUNTLEY on 08/19/162116 Hyoscyamine Sulfate 0.125 Mg Tab.subl, 0.125 MG SL Q4H PRN for ABDOMINAL PAIN Prescribed by: EDWARD NELSON on 11/28/171902 Lisinopril 5 Mg Tablet, 5 MG PO DAILY Prescribed by: ANA WOODS on 11/24/172215 Metformin HCl 500 Mg Tablet, 500 MG PO BID Prescribed by: ANA WOODS on 11/24/172215 Ondansetron 4 Mg Tab.rapdis, 4 MG SL Q4H PRN for NAUSEA/VOMITING-1ST LINE Prescribed by: EDWARD NELSON on 11/28/171902 Tramadol HCl 50 Mg Tablet, 50 MG PO Q6H PRN for PAIN Prescribed by: NASH EVANGELISTA on 07/25/16 141 Patient Home Medication List Home Medication List Reviewed: Yes Review of Systems Constitutional: see HPI; No chills, No dizziness Gastrointestinal: See HPI, Abdominal Pain, Diarrhea, Nausea, Vomiting Past Dktupkc-Okhflr-Ppmkou Hx Past Med/Social Hx: Reviewed Nursing Past Med/Soc Hx Patient Social History Alcohol Beverage of Choice: Beer, Whiskey Type Used: Cigarettes 2nd Hand Smoke Exposure: Yes Recent Foreign Travel: No Contact w/Someone Who Travel: No Recent Hopitalizations: No Seasonal Allergies Seasonal Allergies: No Past Medical History Surgeries: Yes Gallbladder, Orthopedic, Tubal Ligation Respiratory: Yes (allergy induced asthma) Asthma Cardiac: No Neurological: Yes (spinal cord injury 2011, balance issues) Spinal Cord Injury Reproductive Disorders: No Gastrointestinal: No Gall Bladder Disease Musculoskeletal: Yes (left shoulder weak, spinal stenosis) Fractures Endocrine: Yes Diabetes, Non-Insulin dep Cancer: No Psychosocial: Yes Depression Integumentary: No Blood Disorders: No Family Medical History Reviewed Nursing Family Hx Cancer Physical Exam Vital Signs Vital Signs - First Documented 11/28/17 16:43 Temp 96.2 Pulse 112 Resp 20 B/P (MAP) 157/125 (136) Pulse Ox 96 O2 Delivery Room Air Capillary Refill : Height/Weight/BMI Height: 5'4.00" Weight: 160lbs. 4.0oz. 72.463013nh; 32.0 BMI Method:Actual General Appearance: WD/WN, no apparent distress Respiratory: chest non-tender, lungs clear, normal breath sounds, no respiratory distress, no accessory muscle use Cardiovascular: regular rate, rhythm, no edema, no gallop, no JVD, no murmur Gastrointestinal: normal bowel sounds, non tender, soft, no organomegaly, no pulsatile mass Neurologic/Psychiatric: alert, normal mood/affect, oriented x 3 Skin: normal color, warm/dry Lymphatic: no adenopathy Progress/Results/Core Measures Results/Orders Lab Results Laboratory Tests Test 11/28/17 16:46 11/28/17 17:40 11/28/17 18:36 Range/Units White Blood Count 13.3 H 4.3-11.0 10^3/uL Red Blood Count 4.98 4.35-5.85 10^6/uL Hemoglobin 15.6 11.5-16.0 G/DL Hematocrit 44 35-52 % Mean Corpuscular Volume 88 80-99 FL Mean Corpuscular Hemoglobin 31 25-34 PG Mean Corpuscular Hemoglobin Concent 36 32-36 G/DL Red Cell Distribution Width 12.5 10.0-14.5 % Platelet Count 290 130-400 10^3/uL Mean Platelet Volume 10.5 H 7.4-10.4 FL Neutrophils (%) (Auto) 49 42-75 % Lymphocytes (%) (Auto) 43 12-44 % Monocytes (%) (Auto) 7 0-12 % Eosinophils (%) (Auto) 2 0-10 % Basophils (%) (Auto) 0 0-10 % Neutrophils # (Auto) 6.5 1.8-7.8 X 10^3 Lymphocytes # (Auto) 5.7 H 1.0-4.0 X 10^3 Monocytes # (Auto) 0.9 0.0-1.0 X 10^3 Eosinophils # (Auto) 0.2 0.0-0.3 10^3/uL Basophils # (Auto) 0.1 0.0-0.1 10^3/uL Urine Color YELLOW Urine Clarity CLEAR Urine pH 5 5-9 Urine Specific [place] 1.020 1.016-1.022 Urine Protein 1+ H NEGATIVE Urine Glucose (UA) 4+ H NEGATIVE Urine Ketones NEGATIVE NEGATIVE Urine Nitrite NEGATIVE NEGATIVE Urine Bilirubin NEGATIVE NEGATIVE Urine Urobilinogen NORMAL NORMAL MG/DL Urine Leukocyte Esterase 2+ H NEGATIVE Urine RBC (Auto) 1+ H NEGATIVE Urine RBC 0-2 /HPF Urine WBC 2-5 /HPF Urine Squamous Epithelial Cells 5-10 /HPF Urine Crystals NONE /LPF Urine Bacteria FEW H /HPF Urine Casts NONE /LPF Urine Mucus NEGATIVE /LPF Urine Culture Indicated NO Sodium Level 134 L 135-145 MMOL/L Potassium Level 4.1 3.6-5.0 MMOL/L Chloride Level 102 98-107 MMOL/L Carbon Dioxide Level 21 21-32 MMOL/L Anion Gap 11 5-14 MMOL/L Blood Urea Nitrogen 12 7-18 MG/DL Creatinine 0.82 0.60-1.30 MG/DL Estimat Glomerular Filtration Rate > 60 BUN/Creatinine Ratio 15 Glucose Level 334 H 70-105 MG/DL Calcium Level 10.2 H 8.5-10.1 MG/DL Corrected Calcium 10.0 8.5-10.1 MG/DL Total Bilirubin 0.5 0.1-1.0 MG/DL Aspartate Amino Transf (AST/SGOT) 19 5-34 U/L Alanine Aminotransferase (ALT/SGPT) 43 0-55 U/L Alkaline Phosphatase 100 40-136 U/L Total Protein 7.6 6.4-8.2 GM/DL Albumin 4.2 3.2-4.5 GM/DL Amylase Level 49 25-125 U/L Lipase 41 8-78 U/L Glucometer 285 H 157 H 70-110 MG/DL My Orders Orders - EDWARD NELSON Comprehensive Metabolic Panel (11/28/17 16:41) Lipase (11/28/17 16:41) Amylase (11/28/17 16:41) Ua Culture If Indicated (11/28/17 16:41) Saline Lock/Iv-Start (11/28/17 16:41) Cbc With Automated Diff (11/28/17 16:41) Ondansetron Injection (Zofran Injectio (11/28/17 17:00) Fentanyl Injection (Sublimaze Injection (11/28/17 17:00) Ns Iv 1000 Ml (Sodium Chloride 0.9%) (11/28/17 17:00) Hyoscyamine Sl Tablet (Levsin Sl Tablet) (11/28/17 17:30) Insulin (Regular) Human (Humulin R (Per (11/28/17 17:45) Medications Given in ED Vital Signs/I&O 11/28/17 11/28/17 16:43 19:46 Temp 96.2 96.2 Pulse 112 88 Resp 20 20 B/P (MAP) 157/125 (136) 125/80 (136) Pulse Ox 96 96 O2 Delivery Room Air Progress Progress Note : Progress Note I have seen and evaluated the patient. Her blood sugar is trending down with the insulin. She is pain free after the Levsin and fentanyl. She agrees with plan of care, close follow up with PCP, diet control, and return precautions. Departure Impression Primary Impression: Uncontrolled diabetes mellitus Additional Impressions: Nausea and vomiting Diarrhea Disposition: 01 HOME, SELF-CARE Condition: Stable/Unchanged Departure-Patient Inst. Decision time for Depature: 18:56 Referrals: NO,LOCAL PHYSICIAN (PCP/Family) Primary Care Physician Patient Instructions: Acute Abdomen (Belly Pain), Adult (DC), Diabetes Diet , Diabetes Type 2 (DC), Nausea and Vomiting, Adult (DC), Treatment for Type 2 Diabetes Add. Discharge Instructions: Eat a clear liquid diet and advance as tolerated. Take medications as directed. Continue to check your blood sugars regularly. Follow-up with [facility] within 1 week for recheck. Call first thing Friday morning for an appointment time. Return back to the emergency room for any worsening symptoms or concerns as needed. All discharge instructions reviewed with patient and/or family. Voiced understanding. Scripts Hyoscyamine Sulfate (Levsin-Sl) 0.125 Mg Tab.subl 0.125 MG SL Q4H PRN for ABDOMINAL PAIN, #10 TAB Prov: EDWARD NELSON 11/28/17 Ondansetron (Zofran Odt) 4 Mg Tab.rapdis 4 MG SL Q4H PRN for NAUSEA/VOMITING-1ST LINE, #14 TAB Prov: EDWARD NELSON 11/28/17 Hydrocodone Bit/Acetaminophen (Hydrocodone/Acetaminophen 5/325mg Tablet) 1 Tab Tab 1 EACH PO Q6H PRN for PAIN, #10 TAB Prov: EDWARD NELSON 11/28/17 EDWARD NELSON Nov 28, 2017 17:00
[2017-11-28 17:02] LABS: BASOPHILS # (AUTO) 0.1 10^3/uL (0.0-0.1); BASOPHILS % (AUTO) 0 % (0-10); BILIRUBIN,URINE NEGATIVE (NEGATIVE); CLARITY,URINE CLEAR; COLOR,URINE YELLOW; EOSINOPHILS # (AUTO) 0.2 10^3/uL (0.0-0.3); EOSINOPHILS % (AUTO) 2 % (0-10); GLUCOSE, URINE (UA) 4+ (NEGATIVE); HEMATOCRIT 44 % (35-52); HEMOGLOBIN 15.6 G/DL (11.5-16.0); KETONES,URINE NEGATIVE (NEGATIVE); LEUKOCYTE ESTERASE ,URINE 2+ (NEGATIVE); LYMPHOCYTES # (AUTO) 5.7 X 10^3 (1.0-4.0); LYMPHOCYTES % (AUTO) 43 % (12-44); MEAN CORPUSCULAR HEMOGLOBIN 31 PG (25-34); MEAN CORPUSCULAR HGB CONC 36 G/DL (32-36); MEAN CORPUSCULAR VOLUME 88 FL (80-99); MEAN PLATELET VOLUME 10.5 FL (7.4-10.4); MONOCYTES # (AUTO) 0.9 X 10^3 (0.0-1.0); MONOCYTES % (AUTO) 7 % (0-12); NEUTROPHILS # (AUTO) 6.5 X 10^3 (1.8-7.8); NEUTROPHILS % (AUTO) 49 % (42-75); NITRITE,URINE NEGATIVE (NEGATIVE); PH,URINE 5 (5-9); PLATELET COUNT 290 10^3/uL (130-400); PROTEIN,URINE 1+ (NEGATIVE); RED BLOOD COUNT 4.98 10^6/uL (4.35-5.85); RED CELL DISTRIBUTION WIDTH 12.5 % (10.0-14.5); UROBILINOGEN,URINE NORMAL (NORMAL); WHITE BLOOD COUNT 13.3 10^3/uL (4.3-11.0)
[2017-11-28 17:18] LABS: BACTERIA,URINE FEW /HPF; RBC,URINE 0-2 /HPF
[2017-11-28 17:24] LABS: ALANINE AMINOTRANSFERASE 43 U/L (0-55); ALBUMIN 4.2 GM/DL (3.2-4.5); ALKALINE PHOSPHATASE 100 U/L (40-136); AMYLASE 49 U/L (25-125); BILIRUBIN,TOTAL 0.5 MG/DL (0.1-1.0); BUN/CREATININE RATIO 15; CALCIUM 10.2 MG/DL (8.5-10.1); CARBON DIOXIDE 21 MMOL/L (21-32); CHLORIDE 102 MMOL/L (98-107); CREATININE SERUM 0.82 MG/DL (0.60-1.30); GFR ESTIMATED > 60; GLUCOSE 334 MG/DL (70-105); LIPASE 41 U/L (8-78); POTASSIUM 4.1 MMOL/L (3.6-5.0); SODIUM 134 MMOL/L (135-145); TOTAL PROTEIN 7.6 GM/DL (6.4-8.2)
[2017-11-28] MEDS ORDERED: HYOSCYAMINE 0.125 MG (LEVSIN) TAB PO ONE (17:30)
[2017-11-28] MEDS ORDERED: inSUlin (REGULAR) HUMAN 1 UNIT/0.01 ML (CHARGE PER UNIT) IV ONE (17:45)
[2017-11-28] MEDS ORDERED: HYOS0.1283 SL (19:03)
[2017-11-28] MEDS ORDERED: ONDA4TAB8 SL (19:03)
[2017-11-28] MEDS ORDERED: ACHD5005 PO (19:03)
[2017-11-28 19:46] VITALS: BP 125/80
== END 2017-11-28 19:46 | disposition home or self-care (01) ==
LOC: EDUNIT# 16:37 → ER 16:38
DX: E11.65 Type 2 diabetes mellitus with hyperglycemia (principal); R11.2 Nausea with vomiting, unspecified; R19.7 Diarrhea, unspecified; J45.909 Unspecified asthma, uncomplicated; F32.9 Major depressive disorder, single episode, unspecified; Z87.448 Personal history of other diseases of urinary system; Z79.84 Long term (current) use of oral hypoglycemic drugs; Z77.22 Contact with and (suspected) exposure to environmental tobacco smoke (acute) (chronic); Z98.51 Tubal ligation status
CPT/HCPCS: 36415; 80053; 81000; 82150; 82962; 83690; 85025; 96361; 96374; 96375

== ENCOUNTER 2018-01-15 12:57 | Emergency (ER) | payer MEDICARE ==
[~2018-01-15] VITALS: Ht 162.6 cm; Wt 72.7 kg
[~2018-01-15 12:57] MED LIST changes: +HYOS0.1283 SL; +METF-397 PO; -METF500T5 PO; +ONDA4TAB8 SL
[2018-01-15] MEDS ORDERED: fentaNYL INJECTION 100 MCG/2 ML AMP IVP ONE (15:00)
[2018-01-15] MEDS ORDERED: ONDANSETRON 4 MG/2 ML (SDV) Z0FRAN ONE (15:00)
[2018-01-15] MEDS ORDERED: ONDANSETRON 4 MG/2 ML (SDV) Z0FRAN IVP ONE (15:15)
[2018-01-15 15:16] LABS: BASOPHILS % (AUTO) 0 % (0-10); EOSINOPHILS # (AUTO) 0.1 10^3/uL (0.0-0.3); EOSINOPHILS % (AUTO) 1 % (0-10); HEMATOCRIT 42 % (35-52); HEMOGLOBIN 14.6 G/DL (11.5-16.0); LYMPHOCYTES # (AUTO) 3.4 X 10^3 (1.0-4.0); LYMPHOCYTES % (AUTO) 26 % (12-44); MEAN CORPUSCULAR HEMOGLOBIN 31 PG (25-34); MEAN CORPUSCULAR HGB CONC 35 G/DL (32-36); MEAN CORPUSCULAR VOLUME 88 FL (80-99); MEAN PLATELET VOLUME 10.9 FL (7.4-10.4); MONOCYTES # (AUTO) 0.7 X 10^3 (0.0-1.0); MONOCYTES % (AUTO) 5 % (0-12); NEUTROPHILS # (AUTO) 8.9 X 10^3 (1.8-7.8); NEUTROPHILS % (AUTO) 68 % (42-75); PLATELET COUNT 311 10^3/uL (130-400); RED BLOOD COUNT 4.71 10^6/uL (4.35-5.85); RED CELL DISTRIBUTION WIDTH 12.7 % (10.0-14.5); WHITE BLOOD COUNT 13.1 10^3/uL (4.3-11.0)
--- NOTE | 2018-01-15 15:30 | Diagnostic Imaging Report ---
INDICATION: Fall with left femur pain. AP and lateral views of the left femur are obtained. FINDINGS: No fracture or acute bony abnormality is seen. There are screws in place in the knee joint region with configuration of prior ACL repair. IMPRESSION: No acute abnormality of left femur. Dictated by: Dictated on workstation # [id number]
--- NOTE | 2018-01-15 15:31 | Diagnostic Imaging Report ---
INDICATION: Left leg pain. AP and lateral views of the left tibia and fibula are performed. FINDINGS: No fracture or acute bony abnormality is seen. There are screws in place at the knee compatible with configuration of prior ACL repair. IMPRESSION: No acute abnormality of the left tibia and fibula. Dictated by: Dictated on workstation # [id number]
--- NOTE | 2018-01-15 15:32 | Diagnostic Imaging Report ---
INDICATION: Fall from boat dock with left foot pain. AP, oblique, and lateral views of the left foot are obtained. FINDINGS: No fracture or acute bony abnormality is seen. There are degenerative changes throughout the interphalangeal joints. IMPRESSION: No acute abnormality of left foot. Dictated by: Dictated on workstation # [id number]
[2018-01-15 15:35] LABS: ALANINE AMINOTRANSFERASE 24 U/L (0-55); ALBUMIN 4.2 GM/DL (3.2-4.5); ALKALINE PHOSPHATASE 86 U/L (40-136); BILIRUBIN,TOTAL 0.4 MG/DL (0.1-1.0); BUN/CREATININE RATIO 22; CALCIUM 9.8 MG/DL (8.5-10.1); CARBON DIOXIDE 18 MMOL/L (21-32); CHLORIDE 107 MMOL/L (98-107); CREATININE SERUM 0.78 MG/DL (0.60-1.30); GFR ESTIMATED > 60; GLUCOSE 227 MG/DL (70-105); POTASSIUM 4.5 MMOL/L (3.6-5.0); SODIUM 136 MMOL/L (135-145); TOTAL PROTEIN 7.3 GM/DL (6.4-8.2)
--- NOTE | 2018-01-15 15:37 | Diagnostic Imaging Report ---
INDICATION: Fall with pelvic pain. EXAMINATION: AP pelvis obtained at 03:36 p.m. FINDINGS: No fracture or acute bony abnormality is seen. Hip joint spaces are symmetric and unremarkable. SI joints appear unremarkable. IMPRESSION: Negative pelvis. Dictated by: Dictated on workstation # [id number]
[2018-01-15] MEDS ORDERED: KETOROLAC 30 MG/ML VIAL IVP ONE (16:15)
--- NOTE | 2018-01-15 16:21 | ED Fall/Injury ---
General Chief Complaint: Lower Extremity Stated Complaint: KNEE INJ Nursing Triage Note: PT TO RM 4 BY WC WITH CC OF LT LOWER LEG TWISTING INJURY THAT HAPPENED WHILE THE PT WAS PUSHING A BOAT WHILE TRYING TO LOAD IT ON A TRAILER. HX OF ACL REPAIR ON SAME LEG. Source: patient Exam Limitations: no limitations History of Present Illness Date Seen by Provider: Jan 15, 2018 Time Seen by Provider: 14:43 Initial Comments Patient presents to the emergency room with injury to the left lower leg. She was pushing a boat on a trailer when she slipped and struck her knee on the concrete or rocks below it. She also reports there was a twisting motion to her leg. She has had anterior cruciate ligament repair of this knee in the past. She reports pain all the way from her distal foot up to her left hip. She is tender everywhere I touch. There is no abrasion to the left knee as well. She denies injury to any other part of her body. Occurred: just prior to arrival Allergies and Home Medications Allergies Coded Allergies: No Known Drug Allergies (Unverified , 11/16/15) Home Medications Cefdinir 300 Mg Capsule, 300 MG PO BID Prescribed by: SALVADOR HUNTLEY on 08/19/162115 Cyclobenzaprine HCl 10 Mg Tablet, 10 MG PO Q8H PRN for SPASMS Prescribed by: NASH EVANGELISTA on 07/25/16 141 Hydrocodone Bit/Acetaminophen 1 Tab Tab, 1 EACH PO Q6H PRN for PAIN Prescribed by: EDWARD NELSON on 11/28/171902 Hydrocodone/Acetaminophen 1 Each Tablet, 1 EACH PO Q6H PRN for PAIN Prescribed by: SALVADOR HUNTLEY on 08/19/162116 Hyoscyamine Sulfate 0.125 Mg Tab.subl, 0.125 MG SL Q4H PRN for ABDOMINAL PAIN Prescribed by: EDWARD NELSON on 11/28/171902 Lisinopril 5 Mg Tablet, 5 MG PO DAILY Prescribed by: ANA WOODS on 11/24/172215 Metformin HCl 500 Mg Tablet, 500 MG PO BID Prescribed by: ANA WOODS on 11/24/172215 Ondansetron 4 Mg Tab.rapdis, 4 MG SL Q4H PRN for NAUSEA/VOMITING-1ST LINE Prescribed by: EDWARD NELSON on 8/10/18 1903 Tramadol HCl 50 Mg Tablet, 50 MG PO Q6H PRN for PAIN Prescribed by: NASH EVANGELISTA on 07/25/16 1413 Patient Home Medication List Home Medication List Reviewed: Yes Review of Systems Review of Systems Constitutional: no symptoms reported Eyes: No Symptoms Reported Ears, Nose, Mouth, Throat: no symptoms reported Respiratory: no symptoms reported Cardiovascular: no symptoms reported Gastrointestinal: no symptoms reported Genitourinary: no symptoms reported : No Musculoskeletal: see HPI Skin: see HPI Psychiatric/Neurological: No Symptoms Reported Past Tqpigsy-Majotd-Dikplw Hx Past Med/Social Hx: Reviewed and Corrections made Patient Social History Alcohol Use: Occasionally Uses Number of Drinks Today: GG Alcohol Beverage of Choice: Beer, Whiskey Recreational Drug Use: Yes Drug of Choice: THC Type Used: Cigarettes 2nd Hand Smoke Exposure: Yes Recent Foreign Travel: No Contact w/Someone Who Travel: No Recent Infectious Disease Expo: No Recent Hopitalizations: No Seasonal Allergies Seasonal Allergies: Yes Past Medical History Surgeries: Yes Gallbladder, Orthopedic (Neck surgery for cervical spinal stenosis. 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 4.0oz. 72.023526fe; 32.0 BMI Method:Stated General Appearance: WD/WN, moderate distress HEENT: PERRL/EOMI, normal ENT inspection Neck: normal inspection Cardiovascular: regular rate, rhythm, no edema, no murmur Respiratory: lungs clear, normal breath sounds, no respiratory distress, no accessory muscle use Gastrointestinal: non tender, soft Back: normal inspection Extremities: other (Tenderness throughout the left lower extremity. Abrasion to the left knee. Range of motion limited by pain. Sensation and capillary refill intact in the foot. Movement and pedal pulses also intact. 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, no motor/sensory deficits, alert, normal mood/affect, oriented x 3 Skin: normal color, warm/dry, other (Abrasion left knee) Benita Coma Score Best Eye Response: (4) Open Spontaneously Best Verbal Response: (5) Oriented Best Motor Response: (6) Obeys Commands Newcomb Total: 15 Progress/Results/Core Measures Results/Orders Lab Results Laboratory Tests Test 01/15/18 15:10 01/15/18 16:05 Range/Units White Blood Count 13.1 H 4.3-11.0 10^3/uL Red Blood Count 4.71 4.35-5.85 10^6/uL Hemoglobin 14.6 11.5-16.0 G/DL Hematocrit 42 35-52 % Mean Corpuscular Volume 88 80-99 FL Mean Corpuscular Hemoglobin 31 25-34 PG Mean Corpuscular Hemoglobin Concent 35 32-36 G/DL Red Cell Distribution Width 12.7 10.0-14.5 % Platelet Count 311 130-400 10^3/uL Mean Platelet Volume 10.9 H 7.4-10.4 FL Neutrophils (%) (Auto) 68 42-75 % Lymphocytes (%) (Auto) 26 12-44 % Monocytes (%) (Auto) 5 0-12 % Eosinophils (%) (Auto) 1 0-10 % Basophils (%) (Auto) 0 0-10 % Neutrophils # (Auto) 8.9 H 1.8-7.8 X 10^3 Lymphocytes # (Auto) 3.4 1.0-4.0 X 10^3 Monocytes # (Auto) 0.7 0.0-1.0 X 10^3 Eosinophils # (Auto) 0.1 0.0-0.3 10^3/uL Basophils # (Auto) 0.0 0.0-0.1 10^3/uL Sodium Level 136 135-145 MMOL/L Potassium Level 4.5 3.6-5.0 MMOL/L Chloride Level 107 98-107 MMOL/L Carbon Dioxide Level 18 L 21-32 MMOL/L Anion Gap 11 5-14 MMOL/L Blood Urea Nitrogen 17 7-18 MG/DL Creatinine 0.78 0.60-1.30 MG/DL Estimat Glomerular Filtration Rate > 60 BUN/Creatinine Ratio 22 Glucose Level 227 H 70-105 MG/DL Calcium Level 9.8 8.5-10.1 MG/DL Corrected Calcium 9.6 8.5-10.1 MG/DL Total Bilirubin 0.4 0.1-1.0 MG/DL Aspartate Amino Transf (AST/SGOT) 14 5-34 U/L Alanine Aminotransferase (ALT/SGPT) 24 0-55 U/L Alkaline Phosphatase 86 40-136 U/L Total Protein 7.3 6.4-8.2 GM/DL Albumin 4.2 3.2-4.5 GM/DL Serum Alcohol < 10 <10 MG/DL Urine Opiates Screen NEGATIVE NEGATIVE Urine Oxycodone Screen NEGATIVE NEGATIVE Urine Methadone Screen NEGATIVE NEGATIVE Urine Propoxyphene Screen NEGATIVE NEGATIVE Urine Barbiturates Screen NEGATIVE NEGATIVE Ur Tricyclic Antidepressants Screen NEGATIVE NEGATIVE Urine Phencyclidine Screen NEGATIVE NEGATIVE Urine Amphetamines Screen NEGATIVE NEGATIVE Urine Methamphetamines Screen NEGATIVE NEGATIVE Urine Benzodiazepines Screen NEGATIVE NEGATIVE Urine Cocaine Screen NEGATIVE NEGATIVE Urine Cannabinoids Screen POSITIVE H NEGATIVE My Orders Orders - JOSE CHEEK MD Saline Lock/Iv-Start (01/15/18 14:48) Femur, Left, 2 Views (01/15/18 14:48) Tibia/Fibula, Left, 2 Views (01/15/18 14:48) Foot, Left, 3 Views (01/15/18 14:48) Pelvis (01/15/18 14:48) Fentanyl Injection (Sublimaze Injection (01/15/18 15:00) Ondansetron Injection (Zofran Injectio (01/15/18 15:15) Ondansetron Injection (Zofran Injectio (01/15/18 15:00) Alcohol (01/15/18 15:07) Cbc With Automated Diff (01/15/18 15:07) Comprehensive Metabolic Panel (01/15/18 15:07) Drug Screen Stat (Urine) (01/15/18 15:07) Ketorolac Injection (Toradol Injection) (01/15/18 16:15) Crutches (01/15/18 16:13) Knee Immobilizer (01/15/18 16:13) Medications Given in ED Vital Signs/I&O 01/15/18 01/15/18 01/15/18 01/15/18 14:33 15:01 16:22 17:10 Temp 97.3 97.3 97.3 97.3 Pulse 106 102 Resp 22 22 B/P (MAP) 168/99 (122) 125/81 (122) Pulse Ox 97 O2 Delivery Room Air Room Air Blood Pressure Mean: 122 Progress Progress Note : Progress Note Patient was given fentanyl for initial treatment of pain. After review of x- rays toward all was also given. Workup was unremarkable. Patient was fitted with a knee immobilizer and crutches and advised to follow-up with an orthopedic surgeon. See discharge instructions. Diagnostic Imaging Diagonstic Imaging: Xray Plain Films/CT/US/NM/MRI: leg Comments Left tib-fib x-ray reviewed by me and report reviewed. See report below: NAME: GABINO FINLEY MED REC#: [id number] PT STATUS: REG ER : 1960 PHYSICIAN: JOSE CHEEK MD ADMIT DATE: 01/15/18/ER Signed Date of Exam: 01/15/18 TIBIA/FIBULA, LEFT, 2 VIEWS INDICATION: Left leg pain. AP and lateral views of the left tibia and fibula are performed. FINDINGS: No fracture or acute bony abnormality is seen. There are screws in place at the knee compatible with configuration of prior ACL repair. IMPRESSION: No acute abnormality of the left tibia and fibula. Dictated by: Dictated on workstation # [id number] Dict: 01/15/18 1528 Trans: 01/15/18 1553 Interpreted by: HARMONY TRIMBLE MD Electronically signed by: HARMONY TRIMBLE MD 01/15/18 1558 Diagonstic Imaging: Xray Plain Films/CT/US/NM/MRI: pelvis Comments Pelvis x-ray reviewed by me and report reviewed. She reported below: NAME: GABINO FINLEY MED REC#: [id number] PT STATUS: REG ER : 1960 PHYSICIAN: JOSE CHEEK MD ADMIT DATE: 01/15/18/ER Signed Date of Exam: 01/15/18 PELVIS INDICATION: Fall with pelvic pain. EXAMINATION: AP pelvis obtained at 03:36 p.m. FINDINGS: No fracture or acute bony abnormality is seen. Hip joint spaces are symmetric and unremarkable. SI joints appear unremarkable. IMPRESSION: Negative pelvis. Dictated by: Dictated on workstation # [id number] Dict: 01/15/18 1532 Trans: 01/15/18 1553 Interpreted by: HARMONY TRIMBLE MD Electronically signed by: HARMONY TRIMBLE MD 01/15/18 155 Diagonstic Imaging: Xray Plain Films/CT/US/NM/MRI: other (left foot) Comments Left foot x-ray reviewed by me and report reviewed. She reported below: NAME: TUSHARJUANNICKY My MED REC#: [id number] PT STATUS: REG ER : 1960 PHYSICIAN: JOSE CHEEK MD ADMIT DATE: 01/15/18/ER Signed Date of Exam: 01/15/18 FOOT, LEFT, 3 VIEWS INDICATION: Fall from boat dock with left foot pain. AP, oblique, and lateral views of the left foot are obtained. FINDINGS: No fracture or acute bony abnormality is seen. There are degenerative changes throughout the interphalangeal joints. IMPRESSION: No acute abnormality of left foot. Dictated by: Dictated on workstation # [id number] Dict: 01/15/18 1527 Trans: 01/15/18 1553 Interpreted by: HARMONY TRIMBLE MD Electronically signed by: HARMONY TRIMBLE MD 01/15/18 1551 Diagonstic Imaging: Xray Plain Films/CT/US/NM/MRI: leg Comments Left femur x-ray reviewed by me and report reviewed. See report below: NAME: FINLEYGABINO MED REC#: [id number] PT STATUS: REG ER : 1960 PHYSICIAN: JOSE CHEEK MD ADMIT DATE: 01/15/18/ER Signed Date of Exam: 01/15/18 FEMUR, LEFT, 2 VIEWS INDICATION: Fall with left femur pain. AP and lateral views of the left femur are obtained. FINDINGS: No fracture or acute bony abnormality is seen. There are screws in place in the knee joint region with configuration of prior ACL repair. IMPRESSION: No acute abnormality of left femur. Dictated by: Dictated on workstation # [id number] Dict: 01/15/18 1526 Trans: 01/15/18 1530 Interpreted by: HARMONY TRIMBLE MD Electronically signed by: HARMONY TRIMBLE MD 01/15/18 1530 Departure Impression Primary Impression: Contusion of left knee Qualified Codes: S80.02XA - Contusion of left knee, initial encounter Additional Impressions: Left leg pain Fall on same level from slipping Qualified Codes: W01.0XXA - Fall on same level from slipping, tripping and stumbling without subsequent striking against object, initial encounter Disposition: 01 HOME, SELF-CARE Condition: Improved Departure-Patient Inst. Decision time for Depature: 16:10 Referrals: NO,LOCAL PHYSICIAN (PCP) Primary Care Physician HARMONY LESTER DO Patient Instructions: Contusion (DC) Add. Discharge Instructions: Elevate your leg to low level of your heart is much as possible. Ice in 20 minute intervals to reduce pain and swelling. You may take ibuprofen up to 600 mg every 6 hours as needed for primary pain control. Add Tylenol (acetaminophen ) up to 1000 mg every 6 hours as needed for additional pain relief. Use the knee immobilizer and crutches as needed for stability and management of pain. Gradually increase level of activity as tolerated. If you are not rapidly improving over the next couple of days, consider follow-up with an orthopedic surgeon such as Dr. Lester. Please follow-up with your primary care provider soon as possible. All discharge instructions reviewed with patient and/or family. Voiced understanding. JOSE CHEEK MD Jan 15, 2018 16:21
[2018-01-15 16:26] LABS: AMPHETAMINE SCREEN, URINE NEGATIVE (NEGATIVE); BARBITURATE SCREEN URINE NEGATIVE (NEGATIVE); BENZODIAZEPINES SCREEN URINE NEGATIVE (NEGATIVE); CANNABINOID SCREEN, URINE POSITIVE (NEGATIVE); COCAINE SCREEN URINE NEGATIVE (NEGATIVE); METHADONE STAT NEGATIVE (NEGATIVE); METHAMPHETAMINE SCREEN URINE S NEGATIVE (NEGATIVE); OPIATE SCREEN URINE NEGATIVE (NEGATIVE); OXYCODONE STAT NEGATIVE (NEGATIVE); PROPOXYPHENE STAT NEGATIVE (NEGATIVE); TRICYCLIC ANTIDEPRESSANTS SCRE NEGATIVE (NEGATIVE)
--- OUTSIDE RECORDS SUMMARY | 2018-01-15 17:07 | XMS REPORT ---
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 Role Phone ZEINAB CURRY Unavailable PROBLEMS Type Condition ICD9-CM Code EZY65-HC Code Onset Dates Condition Status SNOMED Code Problem Type 2 diabetes mellitus without complications E11.9 Active 058525961 Problem intermediate current use of insulin Z79.4 Active 336642417 Problem Cigarette nicotine dependence without complication F17.210 Active 34083983 Problem Ventral hernia without obstruction or gangrene K43.9 Active 914618391 Problem Dyspepsia R10.13 Active 849545516 Problem Essential hypertension I10 Active 22313303 ALLERGIES No Known Allergies ENCOUNTERS Encounter Location Date Diagnosis [place] [id number] [address] Nov, Dyspepsia R10.13 ; Type 2 diabetes mellitus without complications E11.9 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.4 [place] [address] [address] 16 Nov, 2017 Dyspepsia R10.13 and Type 2 diabetes mellitus without complication, without long-term current use of insulin E11.9 [place] [address] [address] [place] [id number] [place] [phone] Nov, Generalized abdominal pain R10.84 and Type 2 diabetes mellitus without complication, without long-term current use of insulin E11.9 [place] [address] [address] 09 Nov, 2017 Type 2 diabetes mellitus without complication, without long- term current use of insulin E11.9 ; Essential hypertension I10 ; Nausea R11.0 and Cigarette nicotine dependence without complication F17.210 [facility] [address] [phone] May, Dental examination Z01.20 and Dental caries K02.9 IMMUNIZATIONS No Known Immunizations SOCIAL HISTORY Never Assessed REASON FOR VISIT ED follow up, 11/28 for diarrhea, n/v and elevated blood glucose, yellow/fareed colored stools. SHADI Mulligan PLAN OF CARE Activity Details Follow Up 3 days Reason: VITAL SIGNS Height 64 in 2017-12-01 Weight 156.6 lbs 2017-12-01 Temperature 97 degrees Fahrenheit 2017-12-01 Heart Rate 116 bpm 2017-12-01 Respiratory Rate 20 2017-12-01 BMI 26.88 kg/m2 2017-12-01 Blood pressure systolic 116 mmHg 2017-12-01 Blood pressure diastolic 78 mmHg 2017-12-01 MEDICATIONS Medication Instructions Dosage Frequency Start Date End Date Duration Status Lisinopril 5 mg Orally Once a day 1 tablet 24h Nov, 30 day(s) Active Hyoscyamine Sulfate 0.125 MG Orally every 4 hrs 1 tablet on the tongue and allow to dissolve as needed 4h Nov, Active GlipiZIDE 5 mg Orally Once a day 1 tablet 24h Nov, 30 day(s) Active RESULTS No Results PROCEDURES Procedure Date Ordered Result Body Site [facility] VISIT ESTABLISHED PATIENT Dec 01, 2017 INSTRUCTIONS MEDICATIONS ADMINISTERED No Known Medications MEDICAL (GENERAL) HISTORY Type Description Date Medical History diabetes Medical History spinal cord injury Medical History hypertension Surgical History shoulder Surgical History neck Surgical History tore ACL left Surgical History tumor head Hospitalization History blood pressure 11/24/2017 Hospitalization History surgeries
--- OUTSIDE RECORDS SUMMARY | 2018-01-15 17:07 | XMS REPORT ---
Author Author ZEINAB CURRY Organization [facility] Address [address] [place] [address] Care Team Providers Care Molecular Physicist Name Role Phone ZEINAB CURRY Unavailable PROBLEMS Type Condition ICD9-CM Code TFY38-SN Code Onset Dates Condition Status SNOMED Code Problem Type 2 diabetes mellitus without complications E11.9 Active 246718801 Problem long-term current use of insulin Z79.4 Active 383703237 Problem Cigarette nicotine dependence without complication F17.210 Active 99446543 Problem Ventral hernia without obstruction or gangrene K43.9 Active 524957659 Problem Dyspepsia R10.13 Active 183968483 Problem Essential hypertension I10 Active 96544160 ALLERGIES No Known Allergies ENCOUNTERS Encounter Location Date Diagnosis [place] [address] [address] Nov, Dyspepsia R10.13 ; Type 2 diabetes mellitus without complications E11.9 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 [place] [address] [address] 16 Nov, 2017 Dyspepsia R10.13 and Type 2 diabetes mellitus without complication, without long-term current use of insulin E11.9 [place] [address] [address] [place] [id number] [place] [phone] Nov, Generalized abdominal pain R10.84 and Type 2 diabetes mellitus without complication, without long-term current use of insulin E11.9 [place] [address] [address] 09 Nov, 2017 Type 2 diabetes mellitus without complication, without long- term current use of insulin E11.9 ; Essential hypertension I10 ; Nausea R11.0 and Cigarette nicotine dependence without complication F17.210 [facility] [address] [id number] May, Dental examination Z01.20 and Dental caries K02.9 IMMUNIZATIONS No Known Immunizations SOCIAL HISTORY Never Assessed REASON FOR VISIT Hospital f/u-JC martinez PLAN OF CARE Activity Details Follow Up 4 Weeks Reason: VITAL SIGNS Weight 160.9 lbs 2017-11-27 Temperature 98.7 degrees Fahrenheit 2017-11-27 Heart Rate 103 bpm 2017-11-27 Respiratory Rate 18 2017-11-27 Blood pressure systolic 130 mmHg 2017-11-27 Blood pressure diastolic 72 mmHg 2017-11-27 MEDICATIONS Medication Instructions Dosage Frequency Start Date End Date Duration Status Lisinopril 5 mg Orally Once a day 1 tablet 24h Nov, 30 day(s) Active Metformin HCl 1000 MG Orally twice a day 1 tablet with a meal 12h Active Reglan 10 MG Orally 3 times a day, ac 1 tab Nov, Active RESULTS No Results PROCEDURES Procedure Date Ordered Result Body Site [facility] VISIT ESTABLISHED PATIENT Nov 27, 2017 INSTRUCTIONS MEDICATIONS ADMINISTERED No Known Medications MEDICAL (GENERAL) HISTORY Type Description Date Medical History diabetes Medical History spinal cord injury Medical History hypertension Surgical History shoulder Surgical History neck Surgical History tore ACL left Surgical History tumor head Hospitalization History blood pressure 11/24/2017 Hospitalization History surgeries
--- OUTSIDE RECORDS SUMMARY | 2018-01-15 17:07 | XMS REPORT ---
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 Role Phone ZEINAB CURRY Unavailable PROBLEMS Type Condition ICD9-CM Code EMP33-EF Code Onset Dates Condition Status SNOMED Code Problem Type 2 diabetes mellitus without complications E11.9 Active 662365034 Problem alf current use of insulin Z79.4 Active 972018774 Problem Cigarette nicotine dependence without complication F17.210 Active 07641578 Problem Ventral hernia without obstruction or gangrene K43.9 Active 352260615 Problem Dyspepsia R10.13 Active 861923859 Problem Essential hypertension I10 Active 47396752 ALLERGIES No Known Allergies ENCOUNTERS Encounter Location Date Diagnosis [place] [address] [address] Nov, Dyspepsia R10.13 ; Type 2 diabetes mellitus without complications E11.9 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 [place] [address] [address] 16 Nov, 2017 Dyspepsia R10.13 and Type 2 diabetes mellitus without complication, without long-term current use of insulin E11.9 [place] [address] [address] [place] [id number] [place] [address] Nov, Generalized abdominal pain R10.84 and Type 2 diabetes mellitus without complication, without long-term current use of insulin E11.9 [place] [address] [address] 09 Nov, 2017 Type 2 diabetes mellitus without complication, without long- term current use of insulin E11.9 ; Essential hypertension I10 ; Nausea R11.0 and Cigarette nicotine dependence without complication F17.210 [facility] [address] [phone] May, Dental examination Z01.20 and Dental caries K02.9 IMMUNIZATIONS No Known Immunizations SOCIAL HISTORY Never Assessed REASON FOR VISIT f/u, PT report she has still been experincing nausea and high blood sugars as well as abdominal pain. PT notes a loss of appetite along with diarrhea, and fatigued -bin GREENE PLAN OF CARE Activity Details Follow Up 1 Week Reason: VITAL SIGNS Height 64 in 2017-12-04 Weight 157.8 lbs 2017-12-04 Temperature 98.0 degrees Fahrenheit 2017-12-04 Heart Rate 89 bpm 2017-12-04 Respiratory Rate 20 2017-12-04 Oximetry 97 % 2017-12-04 BMI 27.08 kg/m2 2017-12-04 Blood pressure systolic 120 mmHg 2017-12-04 Blood pressure diastolic 80 mmHg 2017-12-04 MEDICATIONS Medication Instructions Dosage Frequency Start Date End Date Duration Status Hyoscyamine Sulfate 0.125 MG Orally every 4 hrs 1 tablet on the tongue and allow to dissolve as needed 4h Nov, Active Lisinopril 5 mg Orally Once a day 1 tablet 24h Nov, 30 day(s) Active Omeprazole 20 mg Orally Once a day, ac 1 capsule Nov, 30 day( s) Active GlipiZIDE 5 mg Orally Once a day 1 tablet 24h Nov, 30 day(s) Active RESULTS Name Result Date Reference Range A1C (IN HOUSE) 2017-12-04 A1C IN HOUSE 10.8 4.3 - 5.6 % Previous A1c N/A Lot [id number] Exp date 06/2019 PROCEDURES Procedure Date Ordered Result Body Site [facility] VISIT ESTABLISHED PATIENT Dec 04, 2017 GLYCATED HEMOGLOBIN TEST Dec 04, 2017 INSTRUCTIONS MEDICATIONS ADMINISTERED No Known Medications MEDICAL (GENERAL) HISTORY Type Description Date Medical History diabetes Medical History spinal cord injury Medical History hypertension Surgical History shoulder Surgical History neck Surgical History tore ACL left Surgical History tumor head Hospitalization History blood pressure 11/24/2017 Hospitalization History surgeries
[2018-01-15 17:10] VITALS: BP 125/81
== END 2018-01-15 17:10 | disposition home or self-care (01) ==
LOC: EDUNIT# 12:57 → ER 12:58
DX: S80.02XA Contusion of left knee, initial encounter (principal); M79.605 Pain in left leg; J45.909 Unspecified asthma, uncomplicated; E11.9 Type 2 diabetes mellitus without complications; F32.9 Major depressive disorder, single episode, unspecified; F12.10 Cannabis abuse, uncomplicated; Z77.22 Contact with and (suspected) exposure to environmental tobacco smoke (acute) (chronic); Z98.51 Tubal ligation status; Z90.49 Acquired absence of other specified parts of digestive tract; Z87.448 Personal history of other diseases of urinary system; Z79.84 Long term (current) use of oral hypoglycemic drugs; X50.1XXA Overexertion from prolonged static or awkward postures, initial encounter; W01.0XXA Fall on same level from slipping, tripping and stumbling without subsequent striking against object, initial encounter
CPT/HCPCS: 36415; 72170; 73552; 73590; 73630; 80053; 80306; 80320; 85025

== ENCOUNTER → 2018-06-12 | Outpatient (CLI) | payer MEDICARE ==
--- NOTE | 2018-06-12 13:09 | Diagnostic Imaging Report ---
INDICATION: Routine screening. COMPARISON: No prior mammograms are available for comparison. This is a baseline study. TECHNIQUE: 2D and 3D bilateral screening mammography was performed with CAD. FINDINGS: Scattered fibroglandular densities are identified bilaterally. There is a nodular density identified in the posterior right breast which is at the nipple line on the CC view and superiorly located on the MLO view. This has fairly benign features but, due to absence of prior mammograms, additional imaging is recommended. The left breast is unremarkable. No suspicious calcifications are seen. The axillae are unremarkable. IMPRESSION: Right breast nodular density. Additional views are recommended for further evaluation. ACR BI-RADS Category 0: Incomplete. (Needs additional imaging evaluation). Result letter will be mailed to the patient. Note: At least 10% of breast cancer is not imaged by mammography. Dictated by: Dictated on workstation # [id number]
--- NOTE | 2018-06-12 15:48 | Diagnostic Imaging Report ---
INDICATION: Nicotine dependency. 18 pack year smoking history with current smoking presents for low dose screening CT. COMPARISON: No priors. TECHNIQUE: Low-dose protocol CT screening chest performed with multiplanar reconstructions. FINDINGS: Juxta-fissural tiny ovoid nodule in the right lower lobe measured 4 mm x 3 mm. In the right upper lobe anteriorly, there is a subcentimeter airspace faint nodule without soft tissue component. No suspicious mass. No findings of pneumonia. No thoracic adenopathy, effusion or pneumothorax. No bronchiectasis, blebs, bullous disease or air cyst. IMPRESSION: 1. Benign findings as described with LungRads category 2. 2. Low-dose CT screening followup in one years time recommended. Dictated by: Dictated on workstation # [id number]
== END ==
LOC: RAD 10:55
PROVIDERS: ATTEND Internal Medicine
DX: Z12.31 Encounter for screening mammogram for malignant neoplasm of breast (principal); Z12.2 Encounter for screening for malignant neoplasm of respiratory organs; R92.8 Other abnormal and inconclusive findings on diagnostic imaging of breast; F17.210 Nicotine dependence, cigarettes, uncomplicated
CPT/HCPCS: 77067

== ENCOUNTER 2019-01-23 18:54 | Emergency (ER) | payer MEDICARE ==
[~2019-01-23] VITALS: Ht 162.5 cm; Wt 72.7 kg
[2019-01-23] MEDS ORDERED: NS IV 1000 ML 1,000 ML IV ONE (19:17)
[2019-01-23] MEDS ORDERED: KETOROLAC 30 MG/ML VIAL IVP STA (19:17)
--- NOTE | 2019-01-23 19:26 | ED Abdominal Pain ---
General Stated Complaint: ABD PAIN Source of Information: Patient History of Present Illness Date Seen by Provider: Jan 23, 2019 Time Seen by Provider: 19:10 Initial Comments PT ARRIVES VIA POV FROM HOME C/O SEVERE SHARP PAIN IN RLQ RADIATING TO RIGHT FLANK FOR THE LAST WEEK, PAIN PROGRESSIVELY GETTING WORSE NOTHING WORSENS OR IMPROVES PAIN RATES PAIN 8-9/10 + NAUSEA, NO VOMITING NO FEVER. TODAY, SHE HAS HAD URINARY URGENCY, BUT NOT ABLE TO GO HAS CHRONIC CONSTIPATION AND LAST BM WAS 4 DAYS AGO, WHICH IS NORMAL FOR PT ATE " 2 PIECES OF PIZZA" AT [address] CURRY ON Friday01/21/19 FOR THIS. HAS FOLLOW UP APPOINTMENT ON FRIDAY FOR THIS PROBLEM PT STATES URINE WAS OK, SO WAS STARTED ON FLEXERIL PT STATES NO RELIEF AND IS GETTING WORSE SINCE THEN HAS NOT TAKEN ANYTHING ELSE FOR PAIN PT HAS CHRONIC LOW BACK PAIN, AND HAS BEEN WORSE FOR THE LAST 4 MONTHS NO INJURY. NO PARESTHESIAS OR MOTOR DEFICITS NO RADIATION TO LEGS. PCP: [facility]. DR. CURRY Allergies and Home Medications Allergies Coded Allergies: No Known Drug Allergies (Unverified , 11/16/15) Home Medications Cefdinir 300 Mg Capsule, 300 MG PO BID Prescribed by: SALVADOR HUNTLEY on 08/19/162115 Cyclobenzaprine HCl 10 Mg Tablet, 10 MG PO Q8H PRN for SPASMS Prescribed by: NASH EVANGELISTA on 07/25/16 141 Dicyclomine HCl 20 Mg Tablet, 20 MG PO Q6H Prescribed by: ANA WOODS on 01/23/192057 Hydrocodone Bit/Acetaminophen 1 Tab Tab, 1 EACH PO Q6H PRN for PAIN Prescribed by: EDWARD NELSON on 11/28/171902 Hydrocodone/Acetaminophen 1 Each Tablet, 1 EACH PO Q6H PRN for PAIN Prescribed by: SALVADOR HUNTLEY on 08/19/162116 Hyoscyamine Sulfate 0.125 Mg Tab.subl, 0.125 MG SL Q4H PRN for ABDOMINAL PAIN Prescribed by: EDWARD NELSON on 11/28/171902 Hyoscyamine Sulfate 0.125 Mg Tab.subl, 1-2 TAB SL Q4H Prescribed by: ANA WOODS on 01/23/192057 Lisinopril 5 Mg Tablet, 5 MG PO DAILY Prescribed by: ANA WOODS on 11/24/172215 Metformin HCl 500 Mg Tablet, 500 MG PO BID Prescribed by: ANA WOODS on 11/24/172215 Ondansetron 4 Mg Tab.rapdis, 4 MG SL Q4H PRN for NAUSEA/VOMITING-1ST LINE Prescribed by: EDWARD NELSON on 11/28/171902 Ondansetron 4 Mg Tab.rapdis, 4 MG PO Q4H Prescribed by: ANA WOODS on 01/23/192057 Tramadol HCl 50 Mg Tablet, 50 MG PO Q6H PRN for PAIN Prescribed by: NASH EVANGELISTA on 07/25/16 141 Tramadol HCl 50 Mg Tablet, 50 MG PO Q4H PRN for PAIN-MODERATE Prescribed by: ANA WOODS on 01/23/192057 Patient Home Medication List Home Medication List Reviewed: Yes Review of Systems Review of Systems Constitutional: no symptoms reported; No chills, No fever Respiratory: No Symptoms Reported Cardiovascular: No Symptoms Reported Gastrointestinal: See HPI, Abdominal Pain, Constipated, Nausea; Denies Vomiting Genitourinary: See HPI, Flank Pain, Urgency Musculoskeletal: see HPI, back pain Skin: no symptoms reported Psychiatric/Neurological: No Symptoms Reported Endocrine: No Symptoms Reported, Other (PT IS DIABETIC--TOOK 20 UNITS OF LEVEMIR 30 MINUTES AGO . ) Hematologic/Lymphatic: No Symptoms Reported Past Gvnosgm-Hlsfto-Bzczmw Hx Patient Social History Alcohol Use: Occasionally Uses Alcohol Beverage of Choice: Beer, Whiskey Recreational Drug Use: Yes (THC) Drug of Choice: THC Smoking Status: Current Everyday Smoker (1/2-1 PPD) Type Used: Cigarettes 2nd Hand Smoke Exposure: Yes Recent Foreign Travel: No Contact w/Someone Who Travel: No Recent Hopitalizations: No Seasonal Allergies Seasonal Allergies: Yes Past Medical History Surgeries: Yes (BILATERAL KNEE SURGERIES; LEFT SHOULDER SURGERY; ELVIRA; BENIGN TUMOR REMOVED FROM HEAD; C-SPINE SURGERY FOR STENOSIS) Gallbladder, Orthopedic, Tubal Ligation Respiratory: Yes (allergy induced asthma) Asthma Cardiac: Yes High Cholesterol Neurological: Yes ("WHIPLASH" INJURY WITH CERVICAL SPINAL STENOSIS--S/P C-SPINE SURGERY) Spinal Cord Injury Reproductive Disorders: No 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 Genitourinary: No Gastrointestinal: Yes (S/P ELVIRA) Chronic Constipation, Gall Bladder Disease Musculoskeletal: Yes (CHRONIC NECK PAIN--S/P C-SPINE SURGERY FOR STENOSIS AND "WHIPLASH" INJURY; BILATERAL KNEE SURGERIES; LEFT SHOULDER SURGERY) Degenerate Disk Disease, Chronic Back Pain, Fractures Endocrine: Yes Diabetes, Insulin dep HEENT: Yes (POOR DENTITION) Cancer: No Psychosocial: Yes Depression Integumentary: No Blood Disorders: No Family Medical History Cancer Physical Exam Vital Signs Vital Signs - First Documented 01/23/19 19:09 Temp 36.4 Pulse 120 Resp 17 B/P (MAP) 131/97 (108) Pulse Ox 96 O2 Delivery Room Air Capillary Refill : Height/Weight/BMI Height: 5'4.00" Weight: 160lbs. 4.0oz. 72.569302cg; 32.0 BMI Method:Stated General Appearance: WD/WN, other (REEKS OF CIGARETTES, HOLDING / PUSHING ON RLQ AREA WHEN LAYING DOWN. WALKS SLOWLY, BENT AT WAIST, HOLDING RLQ. ) HEENT: other (POOR DENTITION) Neck: normal inspection Respiratory: normal breath sounds, no respiratory distress, no accessory muscle use Cardiovascular: no murmur, tachycardia (130'S) Gastrointestinal: normal bowel sounds, soft, no organomegaly, no pulsatile mass; No distended; guarding (RLQ), rebound (EQUIVOCAL), tenderness (RLQ AND RIGHT FLANK), hernia (SMAL VENTRAL HERNIA ABOVE UMBILICUS, SLIGHTLY TENDER. ); No mass Extremities: normal inspection, no pedal edema, normal capillary refill Back: CVA tenderness (R) Neurologic/Psychiatric: setter cold rolling machine II-XII nml as tested, no motor/sensory deficits, alert, oriented x 3 Skin: normal color, warm/dry, tattoos/piercings Focused Exam Lactate Level 01/23/19 19:15: Lactic Acid Level 1.32 Lactic Acid Level Laboratory Tests Test 01/23/19 19:15 Lactic Acid Level 1.32 MMOL/L (0.50-2.00) Progress/Results/Core Measures Results/Orders Lab Results Laboratory Tests Test 01/23/19 19:15 01/23/19 20:29 Range/Units White Blood Count 14.2 H 4.3-11.0 10^3/uL Red Blood Count 5.09 4.35-5.85 10^6/uL Hemoglobin 15.9 11.5-16.0 G/DL Hematocrit 46 35-52 % Mean Corpuscular Volume 90 80-99 FL Mean Corpuscular Hemoglobin 31 25-34 PG Mean Corpuscular Hemoglobin Concent 35 32-36 G/DL Red Cell Distribution Width 13.2 10.0-14.5 % Platelet Count 278 130-400 10^3/uL Mean Platelet Volume 11.1 H 7.4-10.4 FL Neutrophils (%) (Auto) 51 42-75 % Lymphocytes (%) (Auto) 41 12-44 % Monocytes (%) (Auto) 7 0-12 % Eosinophils (%) (Auto) 1 0-10 % Basophils (%) (Auto) 0 0-10 % Neutrophils # (Auto) 7.2 1.8-7.8 X 10^3 Lymphocytes # (Auto) 5.9 H 1.0-4.0 X 10^3 Monocytes # (Auto) 0.9 0.0-1.0 X 10^3 Eosinophils # (Auto) 0.2 0.0-0.3 10^3/uL Basophils # (Auto) 0.0 0.0-0.1 10^3/uL Sodium Level 137 135-145 MMOL/L Potassium Level 4.1 3.6-5.0 MMOL/L Chloride Level 101 98-107 MMOL/L Carbon Dioxide Level 24 21-32 MMOL/L Anion Gap 12 5-14 MMOL/L Blood Urea Nitrogen 14 7-18 MG/DL Creatinine 0.99 0.60-1.30 MG/DL Estimat Glomerular Filtration Rate 58 BUN/Creatinine Ratio 14 Glucose Level 231 H 70-105 MG/DL Lactic Acid Level 1.32 0.50-2.00 MMOL/L Calcium Level 9.7 8.5-10.1 MG/DL Corrected Calcium 9.6 8.5-10.1 MG/DL Magnesium Level 1.9 1.6-2.4 MG/DL Total Bilirubin 0.4 0.1-1.0 MG/DL Aspartate Amino Transf (AST/SGOT) 17 5-34 U/L Alanine Aminotransferase (ALT/SGPT) 30 0-55 U/L Alkaline Phosphatase 97 40-136 U/L Total Protein 7.5 6.4-8.2 GM/DL Albumin 4.1 3.2-4.5 GM/DL Amylase Level 86 25-125 U/L Lipase 32 8-78 U/L Serum Alcohol < 10 <10 MG/DL Urine Color YELLOW Urine Clarity CLEAR Urine pH 6.5 5-9 Urine Specific [place] 1.015 L 1.016-1.022 Urine Protein NEGATIVE NEGATIVE Urine Glucose (UA) NEGATIVE NEGATIVE Urine Ketones NEGATIVE NEGATIVE Urine Nitrite NEGATIVE NEGATIVE Urine Bilirubin NEGATIVE NEGATIVE Urine Urobilinogen 1 NORMAL MG/DL Urine Leukocyte Esterase 1+ H NEGATIVE Urine RBC (Auto) NEGATIVE NEGATIVE Urine RBC NONE /HPF Urine WBC RARE /HPF Urine Squamous Epithelial Cells 0-2 /HPF Urine Crystals NONE /LPF Urine Bacteria TRACE /HPF Urine Casts NONE /LPF Urine Mucus NEGATIVE /LPF Urine Culture Indicated NO Urine Opiates Screen NEGATIVE NEGATIVE Urine Oxycodone Screen NEGATIVE NEGATIVE Urine Methadone Screen NEGATIVE NEGATIVE Urine Propoxyphene Screen NEGATIVE NEGATIVE Urine Barbiturates Screen NEGATIVE NEGATIVE Ur Tricyclic Antidepressants Screen NEGATIVE NEGATIVE Urine Phencyclidine Screen NEGATIVE NEGATIVE Urine Amphetamines Screen NEGATIVE NEGATIVE Urine Methamphetamines Screen NEGATIVE NEGATIVE Urine Benzodiazepines Screen NEGATIVE NEGATIVE Urine Cocaine Screen NEGATIVE NEGATIVE Urine Cannabinoids Screen POSITIVE H NEGATIVE My Orders Orders - ANA WOODS DO Ed Iv/Invasive Line Start (01/23/19 19:11) Amylase (01/23/19 19:11) Cbc With Automated Diff (01/23/19 19:11) Comprehensive Metabolic Panel (01/23/19 19:11) Lipase (01/23/19 19:11) Ua Culture If Indicated (01/23/19 19:11) Accucheck Stat ONCE (01/23/19 19:17) Ed Iv/Invasive Line Start (01/23/19 19:17) Acute Abd Series (01/23/19 19:17) Alcohol (01/23/19 19:17) Drug Screen Stat (Urine) (01/23/19 19:17) Magnesium (01/23/19 19:17) Ketorolac Injection (Toradol Injection) (01/23/19 19:17) Ondansetron Injection (Zofran Injectio (01/23/19 19:30) Ed Iv/Invasive Line Start (01/23/19 19:17) Ns Iv 1000 Ml (Sodium Chloride 0.9%) (01/23/19 19:17) Ct Abd/Pelvis Wo(Kidney Stone) (01/23/19 19:17) Lactic Acid Analyzer (01/23/19 19:34) Blood Culture (01/23/19 19:34) Orphenadrine Injection (Norflex Injectio (01/23/19 21:00) Dicyclomine Injection (Bentyl Injection) (01/23/19 21:00) Medications Given in ED Current Medications Medications Dose Ordered Sig/Jose Route Start Time Stop Time Status Last Admin Dose Admin Dicyclomine HCl 20 mg ONCE ONCE IM 01/23/19 21:00 01/23/19 21:01 DC 01/23/19 21:06 20 MG Ondansetron HCl 4 mg ONCE ONCE IVP 01/23/19 19:30 01/23/19 19:31 DC 01/23/19 19:31 4 MG Orphenadrine Citrate 60 mg ONCE ONCE IV 01/23/19 21:00 01/23/19 21:01 DC 01/23/19 21:06 60 MG Sodium Chloride 1,000 ml @ 0 mls/hr Q0M ONCE IV 01/23/19 19:17 01/23/19 19:20 DC 01/23/19 19:31 0 MLS/HR Vital Signs/I&O 01/23/19 01/23/19 19:09 21:22 Temp 36.4 36.4 Pulse 120 96 Resp 17 17 B/P (MAP) 131/97 (108) 115/75 (108) Pulse Ox 96 98 O2 Delivery Room Air Room Air 01/24/19 00:00 Intake Total 1000 ml Balance 1000 ml Progress Progress Note : Progress Note PAIN IMPROVED WITH MEDICATIONS Diagnostic Imaging Comments ABDOMEN XRAYS--NO ACUTE PROCESS CT ABDOMEN/PELVIS--NO ACUTE PROCESS, STOMACH FILLED WITH LARGE AMOUNT OF FOOD, PROMINENT STOOL THROUGHOUT COLON, UNCOMPLICATED VENTRAL HERNIA CONTAINING FAT. SMALL LEFT ADNEXAL CYST 2 CM DIAMETER. APPENDIX IS NORMAL PER RADIOLOGIST REPORTS AT 2026 Reviewed: Reviewed by Me Departure Impression Primary Impression: RLQ AND RIGHT FLANK PAIN Additional Impressions: Ventral hernia IDDM (insulin dependent diabetes mellitus) Gastric dilation Constipation Disposition: HOME, SELF-CARE Condition: Stable Departure-Patient Inst. Referrals: ZEINAB CURRY MD (PCP/Family) Primary Care Physician Patient Instructions: Constipation, Adult (DC), Acute Abdomen (Belly Pain), Adult (DC), Abdominal Hernia (DC), Diabetes Type 2 (DC), Gastric Outlet Obstruction, Adult Add. Discharge Instructions: CLEAR LIQUIDS--WATER, BROTH, JELLO, GATORADE NO FOOD UNTIL YOUR PAIN AND NAUSEA IS GONE, AND YOU HAVE HAD A BM TAKE MIRALAX 2-3 TIMES A DAY UNTIL YOU HAVE A BM, THEN USE ONCE A DAY EVERY DAY CONTINUE YOUR REGULAR MEDICATIONS PRESCRIBED KEEP YOUR APPOINTMENT WITH DR. CURRY ON FRIDAY Scripts Ondansetron (Ondansetron Odt) 4 Mg Tab.rapdis 4 MG PO Q4H for Nausea/Vomiting, #10 TAB Prov: ANA WOODS DO 01/23/19 Tramadol HCl (Ultram) 50 Mg Tablet 50 MG PO Q4H PRN for PAIN-MODERATE for 3 Days, TAB Prov: ANA WOODS DO 01/23/19 Dicyclomine HCl (Dicyclomine HCl) 20 Mg Tablet 20 MG PO Q6H for Abdominal Pain, #20 TAB Prov: ANA WOODS DO 01/23/19 Hyoscyamine Sulfate (Levsin-Sl) 0.125 Mg Tab.subl 1-2 TAB SL Q4H for Abdominal Pain, #10 TAB Prov: ANA WOODS DO 01/23/19 ANA WOODS DO Jan 23, 2019 19:26
[2019-01-23] MEDS ORDERED: ONDANSETRON 4 MG/2 ML (SDV) Z0FRAN IVP ONE (19:30)
[2019-01-23 19:31] LABS: BASOPHILS % (AUTO) 0 % (0-10); EOSINOPHILS # (AUTO) 0.2 10^3/uL (0.0-0.3); EOSINOPHILS % (AUTO) 1 % (0-10); HEMATOCRIT 46 % (35-52); HEMOGLOBIN 15.9 G/DL (11.5-16.0); LYMPHOCYTES # (AUTO) 5.9 X 10^3 (1.0-4.0); LYMPHOCYTES % (AUTO) 41 % (12-44); MEAN CORPUSCULAR HEMOGLOBIN 31 PG (25-34); MEAN CORPUSCULAR HGB CONC 35 G/DL (32-36); MEAN CORPUSCULAR VOLUME 90 FL (80-99); MEAN PLATELET VOLUME 11.1 FL (7.4-10.4); MONOCYTES # (AUTO) 0.9 X 10^3 (0.0-1.0); MONOCYTES % (AUTO) 7 % (0-12); NEUTROPHILS # (AUTO) 7.2 X 10^3 (1.8-7.8); NEUTROPHILS % (AUTO) 51 % (42-75); PLATELET COUNT 278 10^3/uL (130-400); RED CELL DISTRIBUTION WIDTH 13.2 % (10.0-14.5); WHITE BLOOD COUNT 14.2 10^3/uL (4.3-11.0)
[2019-01-23 19:51] LABS: ALANINE AMINOTRANSFERASE 30 U/L (0-55); ALBUMIN 4.1 GM/DL (3.2-4.5); ALKALINE PHOSPHATASE 97 U/L (40-136); AMYLASE 86 U/L (25-125); BILIRUBIN,TOTAL 0.4 MG/DL (0.1-1.0); BUN/CREATININE RATIO 14; CALCIUM 9.7 MG/DL (8.5-10.1); CARBON DIOXIDE 24 MMOL/L (21-32); CHLORIDE 101 MMOL/L (98-107); CREATININE SERUM 0.99 MG/DL (0.60-1.30); GFR ESTIMATED 58; GLUCOSE 231 MG/DL (70-105); LIPASE 32 U/L (8-78); MAGNESIUM 1.9 MG/DL (1.6-2.4); POTASSIUM 4.1 MMOL/L (3.6-5.0); SODIUM 137 MMOL/L (135-145); TOTAL PROTEIN 7.5 GM/DL (6.4-8.2)
--- NOTE | 2019-01-23 20:10 | Diagnostic Imaging Report ---
INDICATION: Flank pain and nausea. CT abdomen and pelvis obtained without IV contrast. Visualized portions of the lung bases are clear. There were no pleural fluid collections. There is no free intraperitoneal air. The liver shows no focal lesion without contrast. Patient has had cholecystectomy. The spleen, adrenals, and pancreas appear unremarkable. There is a large amount of food material in the stomach. Kidneys bilaterally show no hydronephrosis or radiopaque stone. The pancreas appears unremarkable. There is no retroperitoneal mass or adenopathy. There is no ascites or abnormal fluid collection. Visualized bowel loops show no sign of obstruction or bowel wall thickening. There is prominent stool in the colon. The appendix appears normal. There is a small ventral hernia in the midline containing fat. There is a small 2 cm left adnexal cyst, this can be followed electively with sonography. IMPRESSION: No evidence of urinary tract stone or hydronephrosis. Evidence of prior cholecystectomy. Large amount of food material in the stomach. There is prominent stool throughout the colon. Uncomplicated ventral hernia containing fat. There appears to be a small left adnexal cyst measuring 2 cm, this can be followed electively with sonography. Dictated by: Dictated on workstation # [id number]
[2019-01-23 20:35] LABS: BILIRUBIN,URINE NEGATIVE (NEGATIVE); CLARITY,URINE CLEAR; COLOR,URINE YELLOW; GLUCOSE, URINE (UA) NEGATIVE (NEGATIVE); KETONES,URINE NEGATIVE (NEGATIVE); LEUKOCYTE ESTERASE ,URINE 1+ (NEGATIVE); NITRITE,URINE NEGATIVE (NEGATIVE); PH,URINE 6.5 (5-9); PROTEIN,URINE NEGATIVE (NEGATIVE); UROBILINOGEN,URINE 1 MG/DL (NORMAL)
[2019-01-23 20:42] LABS: BACTERIA,URINE TRACE /HPF; SQUAMOUS EPITHELIAL CELL,UR 0-2 /HPF; WBC,URINE RARE /HPF
[2019-01-23 20:46] LABS: AMPHETAMINE SCREEN, URINE NEGATIVE (NEGATIVE); BARBITURATE SCREEN URINE NEGATIVE (NEGATIVE); BENZODIAZEPINES SCREEN URINE NEGATIVE (NEGATIVE); CANNABINOID SCREEN, URINE POSITIVE (NEGATIVE); COCAINE SCREEN URINE NEGATIVE (NEGATIVE); METHADONE STAT NEGATIVE (NEGATIVE); METHAMPHETAMINE SCREEN URINE S NEGATIVE (NEGATIVE); OPIATE SCREEN URINE NEGATIVE (NEGATIVE); OXYCODONE STAT NEGATIVE (NEGATIVE); PROPOXYPHENE STAT NEGATIVE (NEGATIVE); TRICYCLIC ANTIDEPRESSANTS SCRE NEGATIVE (NEGATIVE)
[2019-01-23] MEDS ORDERED: TRAM-42 PO (20:58)
[2019-01-23] MEDS ORDERED: DICY20TA10 PO (20:58)
[2019-01-23] MEDS ORDERED: HYOS0.1283 SL (20:58)
[2019-01-23] MEDS ORDERED: ONDA4TAB11 PO (20:58)
[2019-01-23] MEDS ORDERED: ORPHENADRINE 60 MG/2 ML (NORFLEX) AMP IV ONE (21:00)
[2019-01-23] MEDS ORDERED: DICYCLOMINE 10 MG/ML (BENTYL) 2 ML AMP IM ONE (21:00)
--- NOTE | 2019-01-23 21:06 | Diagnostic Imaging Report ---
INDICATION: Abdominal pain and nausea. Abdominal series performed with a frontal chest radiograph and supine and upright abdominal films. Frontal chest view shows heart normal in size with the lungs clear. There is no pneumothorax or pleural fluid. There is no free intraperineal air. There are surgical clips in the right upper quadrant. There is prominent stool throughout the colon. There is no sign of bowel obstruction or ileus. There are phleboliths in the pelvis. IMPRESSION: No sign of free air or bowel obstruction. Evidence of previous cholecystectomy. No acute process in the chest. Dictated by: Dictated on workstation # [id number]
[2019-01-23 21:22] VITALS: BP 115/75
== END 2019-01-23 21:22 | disposition home or self-care (01) ==
LOC: EDUNIT# 18:54 → ER 18:55
DX: K43.9 Ventral hernia without obstruction or gangrene (principal); E11.9 Type 2 diabetes mellitus without complications; K59.00 Constipation, unspecified; K31.89 Other diseases of stomach and duodenum; F17.210 Nicotine dependence, cigarettes, uncomplicated; J45.909 Unspecified asthma, uncomplicated; E78.00 Pure hypercholesterolemia, unspecified; F32.9 Major depressive disorder, single episode, unspecified; Z79.84 Long term (current) use of oral hypoglycemic drugs; Z98.51 Tubal ligation status; Z87.19 Personal history of other diseases of the digestive system; Z90.49 Acquired absence of other specified parts of digestive tract
CPT/HCPCS: 36415; 74022; 74176; 80053; 80306; 80320; 81000; 82150; 83605; 83690; 83735; 85025; 87040

== ENCOUNTER → 2021-12-21 | Outpatient (CLI) | payer MEDICARE ==
[~2021-12-21] MED LIST changes: +CYCL10TA25 PO; -CYCL10TA9 PO; +DICY20TA PO; -LISI-556 PO; +LISI5TAB20 PO; +METH-732 PO; -METH750T3 PO; +ONDA4TAB11 PO; -OXYC-464 PO; +OXYC1TAB15 PO; +TRAM-42 PO; -TRAM50TA2 PO; +TRM50T PO
--- NOTE | 2021-12-21 15:21 | Diagnostic Imaging Report ---
PROCEDURE: MRI lumbar spine. TECHNIQUE: Multiplanar, multisequence MRI of the lumbar spine was performed without contrast. INDICATION: Sciatica. EXAMINATION: Lumbar spine MRI without contrast 12/21/2021. FINDINGS: There is grade 1 anterolisthesis at L4-L5. Remaining alignment is maintained. Vertebral body heights preserved. Tip of the conus unremarkable in appearance and location. L1-L2: There is bilateral facet and ligamentum flavum hypertrophy. No central stenosis. There is mild bilateral neural foraminal narrowing. L2-L3: There is bilateral facet and ligamentum flavum hypertrophy. There is no central stenosis. There is moderate bilateral neural foraminal narrowing. L3-L4: There is bilateral facet and ligamentum flavum hypertrophy. There is a mild broad-based bulging disc. There is no significant central stenosis. There is moderate bilateral neural foraminal narrowing. L4-L5: There is disc desiccation with a broad-based bulging disc containing an annular tear. There is bilateral facet and ligamentum flavum hypertrophy. Findings cause severe central stenosis with narrowing of the lateral recesses bilaterally. There is severe left and moderate right neural foraminal stenosis. L5-S1: There is a mild broad-based bulging disc containing left paracentral annular tear. There is bilateral facet and omentum flavum hypertrophy. There is no central stenosis. There is severe bilateral neural foraminal narrowing left worse than right. Cystic changes posterior to the facets at this level consistent with perineural cysts. The visualized abdominal and pelvic structures demonstrate a partially imaged cystic lesion within the left paracentral aspect of the pelvis on the localizer images. This measures 8.1 x 8.2 cm on the coronal imaging and contains septations. It lies partially posterior to the urinary bladder and may represent an ovarian lesion. Pelvic sonography is recommended. Remaining intra-abdominal structures unremarkable. IMPRESSION: 1. Multilevel diffuse degenerative disease causing areas of of predominantly mild to moderate central stenosis however severe narrowing is seen at L4-L5. Multilevel neural foraminal stenosis as detailed above. 2. Large septated cystic lesion in the left adnexa incompletely imaged. This is most likely an ovarian lesion and pelvic sonography is recommended. Dictated by: Dictated on workstation # [id number]
== END ==
LOC: RAD 13:30
PROVIDERS: ATTEND Pediatrics
DX: M47.817 Spondylosis without myelopathy or radiculopathy, lumbosacral region (principal); M51.27 Other intervertebral disc displacement, lumbosacral region; M48.07 Spinal stenosis, lumbosacral region; N83.8 Other noninflammatory disorders of ovary, fallopian tube and broad ligament; M53.86 Other specified dorsopathies, lumbar region
CPT/HCPCS: 72148